=== PATIENT | male | born 1980 | race Caucasian/White ===

== ENCOUNTER 2021-12-06 13:47 | Emergency (ER) | payer MEDICAID, SELFPAY ==
[2021-12-06 14:13] VITALS: BP 123/77; PULSE 63; RESP 20; TEMP 37.3; O2SAT 97; BMI 27.3
--- NOTE | 2021-12-06 14:33 | CRLHL7_ITS ---
For Patients: As a result of the Century Cures Act, medical imaging exams and procedure reports are released immediately into your electronic medical record. You may view this report before your referring provider. If you have questions, please contact your health care provider. INDICATION: covid, cough, short of breath TECHNIQUE: Chest 1 view. COMPARISON: None. FINDINGS: Cardiovascular and mediastinum: Heart size and vasculature are normal in caliber and appearance. Mediastinum is within normal limits. Lungs and pleural space: Lungs are clear. No sign of infiltrate or mass. No sign of pleural effusion. No pneumothorax. Bones and soft tissues: No significant findings. IMPRESSION: Unremarkable chest. Dictated by: Johan Mariscal MD @ 12/06/2021 15:18:27 (Electronically Signed)
--- NOTE | 2021-12-06 14:34 | ED.GENADULT ---
HPI - General Adult General Chief complaint: Weakness Stated complaint: Covid+, short of breath Time Seen by Provider: 12/06/21 14:25 History of Present Illness HPI narrative: This 41-year-old male comes in reporting generalized weakness, cough, and some shortness of breath. These symptoms have been present for about a week. Five days ago he tested at home positive for COVID. He arrives with normal vital signs and oximetry 97% on room air. He is not using any accessory muscles for breathing. Related Data Allergies Allergy/AdvReac Type Severity Reaction Status Date / Time seasonal Allergy Mild Uncoded 12/06/21 14:12 Review of Systems Status of ROS: Reports: 10 or more systems reviewed and unremarkable except as noted in History and below Narrative: Constitutional: No fevers, no weight gain or loss. Generalized weakness and fatigue. Eyes: No discharge. No vision changes. HENT: No congestion, no sore throat, no ear pain. Cardiovascular: No chest pain, no palpitations. Respiratory: Occasional cough with some shortness of breath. Gastrointestinal: No abdominal pain, no vomiting, no diarrhea. Genitourinary: No dysuria, no hematuria. Musculoskeletal: Normal range of motion. Skin: No rashes, no pruritis. Neurological: No dizziness, sensory change, speech change. Endo/Heme/Allergies: No bruising or bleeding. No polydipsia. Pysch: no suicidality, no anxiety, no insomnia. All other systems reviewed and are negative. [facility] Social History Smoking Status: Never smoker Do you use any of these nicotine containing products: None Second hand tobacco smoke exposure: No How often do you have a drink containing alcohol: 4 or more times a week How many standard drinks containing alcohol do you have on a typical day: 1 or 2 How often do you have six or more drinks on one occasion: Never AUDIT-C Alcohol total score: 4 Non-prescribed substance use: denies use service: No Exam Narrative: Exam Narrative: Constitutional: Well-developed, well-nourished, no acute distress. HEENT: Normocephalic, atraumatic. Neck: Normal range of motion. Nontender. Supple. Heart: Regular. No murmurs. Normal rate. Intact distal pulses. Lungs: Clear to auscultation. No chest discomfort. No wheezes, rhonchi, or rales. Abdomen: Normal bowel sounds. Nontender. No rebound tenderness. Genitalia: Deferred. Back: No midline tenderness. Normal range of motion. Extremities: Normal range of motion. No injury. Skin: Intact. No rash. Warm. No erythema or pallor. Neurologic: No altered sensation. No weakness. Alert and oriented. Psychiatric: No suicidality. No anxiety or depression. No insomnia. Nursing notes and vitals signs are reviewed. Const: Vital Signs, click to edit/add: Vital Signs - 24 hr 12/06/21 14:13 Temperature 99.2 F Pulse Rate [Pulse Oximeter] 63 Respiratory Rate 20 Blood Pressure [Le ft Upper Arm] 123/77 Pulse Oximetry 97 Oxygen Delivery Me thod Room Air Course Vital Signs Vital signs: Initial Vital Signs Temperature 99.2 F 12/06/21 14:13 Temperature Source Temporal Artery Scan 12/06/21 14:13 Pulse Rate 63 12/06/21 14:13 Pulse Rhythm 12/06/21 14:13 Respiratory Rate 20 12/06/21 14:13 Blood Pressure 123/77 12/06/21 14:13 Blood Pressure Mean 92 12/06/21 14:13 Blood Pressure Position Supine 12/06/21 14:13 Pulse Oximetry 97 12/06/21 14:13 Oxygen Delivery Method 12/06/21 14:13 Vital Signs Temperature 99.2 F 12/06/21 14:13 Pulse Rate 63 12/06/21 14:13 Respiratory Rate 20 12/06/21 14:13 Blood Pressure 123/77 12/06/21 14:13 Pulse Oximetry 97 12/06/21 14:13 Oxygen Delivery Method 12/06/21 14:13 Temperature 99.2 F 12/06/21 14:13 Pulse Rate 63 12/06/21 14:13 Respiratory Rate 20 12/06/21 14:13 Blood Pressure 123/77 12/06/21 14:13 Pulse Oximetry 97 12/06/21 14:13 Oxygen Delivery Method 12/06/21 14:13 Medical Decision Making MDM Narrative Medical decision making narrative: This patient comes in because of symptoms related to a positive COVID test. His vital signs are in normal range with oximetry at 97%. He is not showing any sign of difficulty with breathing. Additionally his lungs are clear bilaterally. He did have an x-ray which also shows no remarkable findings. The patient received an oral dose of dexamethasone 10 mg. He is okay to be discharged home. He will use [id number] medicines as needed and directed. Imaging Data Chest x-ray: Radiologist's impression: Unremarkable chest. Discharge Plan Discharge Clinical Impression: COVID-19 Patient Disposition: Home, Self-Care Condition: Stable Instructions: COVID-19 (Coronavirus Disease 2019) (ED) Additional Instructions: Use [id number] medicines as needed and directed. Follow up with MD or return if worsening symptoms occur. Follow Up/Referrals: Kavin Clark MD [Staff Physician] - Stand Alone Forms: 36Kr Info Instructions
[2021-12-06] MEDS: dexAMETHasone 10 MG/ML inj PO (14:43)
--- OUTSIDE RECORDS SUMMARY | 2021-12-06 15:35 | XMS_ITS | Encounter Summary ---
:1980 Author Organization [email or web address] Address [address] [place] [address] Care Team Providers Name Role Phone Yeison Kim MD Primary Care Provider Reason for Visit Reason Comments Eye Exam Encounter Details Date Type Department Care Team Description 07/01/2020 Office Visit [facility] [address], ANNA Examination of eyes and vision (Primary Dx); Ophthalmology [address] Regular astigmatism, bilater al; [address] Hyperopia [place] [address] [id number] [phone] Social History Tobacco Use Types Packs/Day Years Used Date Smoking Tobacco: Never Sex Assigned at Date Recorded Not on file documented as of this encounter Patient Instructions Patient InstructionsCurt Rueda, OD - 07/01/2020 2:00 PM CDT - Recommend a new glasses prescription for improved vision in the distance. - Schedule a contact lens exam / fitting at your earliest convenience. - Return to clinic in 1-2 years for a complete eye exam. Return sooner should you notice any decrease in vision or comfort. documented in this encounter Progress Notes Curt Rueda, ANNA - 07/01/2020 2:00 PM CDT General Medical Observation: Basically healthy. Feels well. Diagnosis and Associated Orders ICD-10-CM 1. Examination of eyes and vision Z01.00 Refractive State, Determination Of - Bilateral 2. Regular astigmatism, bilateral H52.223 3. 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 Plan: Discussed findings with the patient. Schedule another contact lens evaluation at your earliest convenience. The instructions (as seen below) were given to the patient. Patient Instructions - Recommend a new glasses prescription for improved vision in the distance. - Schedule a contact lens exam / fitting at your earliest convenience. - Return to clinic in 1-2 years for a complete eye exam. Return sooner should you notice any decrease in vision or comfort. documented in this encounter Plan of Treatment Not on filedocumented as of this encounter Visit Diagnoses Diagnosis Examination of eyes and vision - Primary Regular astigmatism, bilateral Hyperopia of right eye documented in this encounter Care Teams Guideman Relationship Specialty Start Date End Date Yeison Kim MD PCP - General 06/18/10 [address] [place] [address] documented as of this encounter
--- OUTSIDE RECORDS SUMMARY | 2021-12-06 15:35 | XMS_ITS | Clinical Summary ---
:1980 Author Organization [facility] Address [address] [address] Care Team Providers Name Role Phone Yeison Kim MD Primary Care Provider Source Comments You are receiving this document as you are listed as the primary care provider,follow-up provider, or the patient has been referred to you for consultation.This is in compliance with the Medicare and Medicaid EHR Incentive Program,which states Providers who transition their patient to another setting of careor provider of care or refers their patient to another provider of care shouldprovide summarycare record for each transition of care or referral. [place] Allergies Active Allergy Reactions Severity Noted Date Comments Gluten Meal Other, see comments 01/21/2016 Celiac d z Medications Medication Sig Dispensed Refills Start Date End Date Status cetirizine (AKA Take 1 tablet by 90 3 08/12/2009 Active ZYRTEC) 10 MG tablet mouth daily (every 24 hours). LW Addl Instr:Indicated for: Allergies Multiple Vitamin 0 Act alan (MULTIVITAMINS OR) Multiple 0 Active Vitamins-Minerals (ZINC OR) Active Problems Problem Noted Date Major depressive disorder, single episode 03/14/2007 Overview: Depression Major NOS Allergic rhinitis 08/24/2002 Overview: Rhinitis Allergic NOS Immunizations Name Administration Dates Next Due DTP 11/06/1986, 09/14/1983, 05/26/1982, 03/09/1982, 1980 HepB Adult (Engerix-B, 20+ yrs, 3 04/26/1995, 10/05/1994, dose series) Hib (ActHIB) 01/03/1986 Influenza, Unspecified Formulation 01/07/1999, 01/24/1998, 1 MMR 09/02/1994, 02/16/1983 MPSV4 (Menomune) 10/25/2000 Moderna (Spikevax) COVID-19, 12+ Yrs 06/27/2020 OPV, Trivalent (Orimune or tOPV) 11/06/1986, 09/14/1983, , 1980 TDAP (ADACEL) 08/12/2009 Td 06/20/1997 Family History Medical History Relation Name Comments Diabetes Maternal Grandfather Diabetes Paternal Grandmother Cataract Negative Family History Glaucoma Negative Family History Macular Degeneration Negative Family History Relation Name Status Comments Maternal Grandfather Paternal Grandmother Social History Tobacco Use Types Packs/Day Years Used Date Smoking Tobacco: Never Sex Assigned at Date Recorded Not on file Last Filed Vital Signs Vital Sign Reading Time Taken Comments Blood Pressure 111/65 04/24/2017 1:38 PM [employer]ERHANGER PIPE Pulse 61 04/24/2017 1:38 PM [employer] Temperature 36.8 ??C (98.2 ??F) 04/24/2017 1:38 PM [employer]HANG[employer]IPE Respiratory Rate 16 04/24/2017 1:38 PM [employer]HANG[employer]IPE Oxygen Saturation 96% 04/24/2017 1:38 PM [employer]IPE Inhaled Oxygen Concentration - - Weight 78.6 kg (173 lb 3.1 oz) 01/27/2010 1:04 PM C: 78 .6kg [employer] Height 179.7 cm (5' 10.75) 01/25/2010 9:30 AM C: 179.7 cm [employer] Body Mass Index 24.33 01/25/2010 9:30 AM [employer]ERHANG[employer]IPE Plan of Treatment Health Maintenance Due Date Last Done Comments Hep C Screening (Preventive 1980 Services) Adult Preventive Visit 11/02/1999 Cholesterol 2016 11/16/1998, 10/17/1998, 09/19/1998, Additional history exists COVID-19 Vaccine (2 - 07/25/2020 06/27/2020 Moderna series) Influenza (#1) 2021 01/28/2020, 01/07/1999, 01/07/1999, Additional history exists DTaP/Tdap/Td (8 - Tdap) 06/03/2030 06/03/2020, 08/12/2009, 06/20/1997, Additional history exists Zoster/Shingles (1 of 2) 11/02/2031 Hib Completed 01/03/1986 IPV (Polio) Completed 11/06/1986, 09/14/1983, 03/09/1982, Additional history exists HepB Completed 04/26/1995, 10/05/1994, 09/02/1994 MCV4 Aged Out 10/25/2000 No longer eligib le based on patient 's age to complete this topic HIV Screening (Preventive Completed 01/25/2010 Services) HPV Vaccine Aged Out No longer eligib le based on patient 's age to complete this topic HepA Aged Out No longer eligib le based on patient 's age to complete this topic Pneumococcal Aged Out No longer eligib le based on patient 's age to complete this topic Care Teams Syrup Mixer Assistant Relationship Specialty Start Date End Date Yeison Kim MD PCP - General 06/18/10 [facility] [place] [address]
--- OUTSIDE RECORDS SUMMARY | 2021-12-06 15:35 | XMS_ITS | Encounter Summary ---
:1980 Author Organization [facility] Address [address] [address] Care Team Providers Name Role Phone Yeison Kim MD Primary Care Provider Reason for Visit Reason Comments Follow-up Encounter Details Date Type Department Care Team Description 08/11/2020 Office Visit [facility] [address] Hyper opia of both eyes Contact Lens L with astigmatism [address] (Primary Dx) [address] [place], [place] [address] Social History Tobacco Use Types Packs/Day Years Used Date Smoking Tobacco: Never Sex Assigned at Date Recorded Not on file documented as of this encounter Plan of Treatment Not on filedocumented as of this encounter Visit Diagnoses Diagnosis Hyperopia of both eyes with astigmatism - Primary documented in this encounter Care Teams Skiver Heel Tap Relationship Specialty Start Date End Date Yeison Kim MD PCP - General 06/18/[address] [place] [address] [id number] documented as of this encounter
--- OUTSIDE RECORDS SUMMARY | 2021-12-06 15:35 | XMS_ITS | Encounter Summary ---
:1980 Author Organization [facility] Address [address], [place] [address] Care Team Providers Name Role Phone Yeison Kim MD Primary Care Provider Reason for Visit Reason Comments Annual Exam Encounter Details Date Type Department Care Team Description 08/16/2018 Office Visit [facility] [address] Hyperopia with Contact Lens [address] [place] astigmatism, [address] bilateral ([address] [place], [place] Dx) [place] [address] [id number] Social History Tobacco Use Types Packs/Day Years Used Date Smoking Tobacco: Never Sex Assigned at Date Recorded Not on file documented as of this encounter Plan of Treatment Not on filedocumented as of this encounter Visit Diagnoses Diagnosis Hyperopia with astigmatism, bilateral - Primary documented in this encounter Care Teams Braille Duplicating Machine Operator Relationship Specialty Start Date End Date Yeison Kim MD PCP - General 06/18/[address] [place], [place] [address] documented as of this encounter
--- OUTSIDE RECORDS SUMMARY | 2021-12-06 15:35 | XMS_ITS | Encounter Summary ---
:1980 Author Organization [facility] Address [address] [address] Care Team Providers Name Role Phone Yeison Kim MD Primary Care Provider Reason for Visit Reason Comments Annual Exam Encounter Details Date Type Department Care Team Description 07/14/[address] [facility] [address] Hyper opia of both eyes Contact Lens L with astigmatism [address] (Primary Dx) [address] [place], [place] [address] Social History Tobacco Use Types Packs/Day Years Used Date Smoking Tobacco: Never Sex Assigned at Date Recorded Not on file documented as of this encounter Plan of Treatment Not on filedocumented as of this encounter Visit Diagnoses Diagnosis Hyperopia of both eyes with astigmatism - Primary documented in this encounter Care Teams Biofuels Product Manager Relationship Specialty Start Date End Date Yeison Kim MD PCP - General 06/18/[address] [place] [address] [id number] documented as of this encounter
--- OUTSIDE RECORDS SUMMARY | 2021-12-06 15:35 | XMS_ITS | Encounter Summary ---
:1980 Author Organization [facility] Address [address] [place] [address] Care Team Providers Name Role Phone Yeison Kim MD Primary Care Provider Reason for Visit Reason Comments Ear Pain Encounter Details Date Type Department Care Team Description 01/21/2016 Hospital Encounter [facility] Dalia Cruz L eft non-suppurative Care otitis media [address] [address] [phone] Social History Tobacco Use Types Packs/Day Years Used Date Smoking Tobacco: Never Sex Assigned at Date Recorded Not on file documented as of this encounter Last Filed Vital Signs Vital Sign Reading Time Taken Comments Blood Pressure 120/70 01/21/2016 1:49 PM CDT Pulse 70 01/21/2016 1:49 PM CDT Temperature 36.6 ??C (97.9 ??F) 01/21/2016 1:49 PM CDT Respiratory Rate 16 01/21/2016 1:49 PM CDT Oxygen Saturation - - Inhaled Oxygen Concentration - - Weight - - Height - - Body Mass Index - - documented in this encounter Medications at Time of Discharge Medication Sig Dispensed Refills Start Date End Date cetirizine (AKA ZYRTEC) Take 1 tablet by mouth 90 3 08/12/2009 10 MG tablet daily (every 24 hours). LW Addl Instr:Indicated for: Allergies Multiple Vitamin 0 (MULTIVITAMINS OR) Multiple 0 Vitamins-Minerals (ZINC OR) amoxicillin-clavulanate Take 1 Tab by mouth 14 Tab 0 05/201501/31/2016 (AUGMENTIN) 875-125 mg two times a day for 10 per tablet days. drug not in computer 0 06/18 Probiotic Product 0 021 (SUPER PROBIOTIC OR) documented as of this encounter ED Notes Dalia Cruz MD - 01/21/2016 8:31 PM CDT NAME: BENJAMIN SMITH MR#: [id number] CSN: [id number] AUTHENTICATING CLINICIAN: Dalia Cruz MD CONFIRM #: [id number] LOC: 520 URGENT CARE PROGRESS NOTE DATE OF VISIT: 01/21/2016 : 1980 CHIEF COMPLAINT: Ear pain. HPI: This pleasant 35-year-old comes in today complaining of ear pain. It has been going on for the past 2-3 days. It is his left ear. No recent cough or cold symptoms. The patient says he was wondering if maybe he has some wax in his ear. He does not have any hearing loss. His hearing is intact. He does not have any ringing in his ears. PAST MEDICAL HISTORY: Reviewed through [facility]. PAST SURGICAL HISTORY: Reviewed through [employer]. MEDICATIONS: Epic. ALLERGIES: Gluten. OBJECTIVE: VITAL SIGNS: Temperature 97.9, pulse 70, respirations 16, blood pressure 120/70. GENERAL: Alert and oriented, no apparent distress. HEENT: Right tympanic membrane is within normal limits. Left tympanic membrane reveals otitis media.It is erythematous with fluid. Sinuses are nontender. Oropharynx is clear with no tonsillar enlargement. LUNGS: Clear. HEART: Regular. ABDOMEN: Soft and nontender. ASSESSMENT: Left otitis media. PLAN: Will treat with Augmentin 875 one p.o. b.i.d. x10 days. Rest, fluids, ibuprofen and Tylenol. The patient is in agreement with the plan. He will follow up if symptoms are not significantly improving. LIVIAM:ABBY C: CONFIRM #: [id number] documented in this encounter Plan of Treatment Not on filedocumented as of this encounter Visit Diagnoses Diagnosis Left non-suppurative otitis media Nonsuppurative otitis media, not specifi ed as acute or chronic Triage Assessment Note - Scottie Villa RN - 01/21/2016 1:46 PM CDT C/o left ear pain onset a few days ago. Denies cold symptoms now, but did have a cold a couple weeksago. documented in this encounter Care Teams Marine Services Technician Relationship Specialty Start Date End Date Yeison Kim MD PCP - General 06/18/[address] [place] [id number] documented as of this encounter
--- OUTSIDE RECORDS SUMMARY | 2021-12-06 15:35 | XMS_ITS | Encounter Summary ---
:1980 Author Organization [facility] Address [address] [address] Care Team Providers Name Role Phone Yeison Kim MD Primary Care Provider Reason for Visit Procedure/Equipment (Routine) - Incomplete Specialty Diagnoses / Procedures Referred By Contact Refer red To Contact Diagnoses Pain of toe of right foot Al Ovalle MD Procedures XR Toe Rt 1st Great 3 Views [address] [place] [address] Referral ID Status Reason Start Date Expiration Date Visits V isits Requested Authorized [id number] Incomplete 04/24/2017 07/24/2018 1 1 Encounter Details Date Type Department Care Team Description 04/24/2017 Imaging [facility] [address] [place] [address] Social History Tobacco Use Types Packs/Day Years Used Date Smoking Tobacco: Never Sex Assigned at Date Recorded Not on file documented as of this encounter Plan of Treatment Not on filedocumented as of this encounter Procedures Procedure Name Priority Date/Time Associated Diagnosis Comme nts XR TOE RT 1ST GREAT Routine 04/24/2017 2:29 PM Pain of toe of right Results for this 3 VIEWS KILN BURNER HELPER foot procedure are i n the results section. documented in this encounter Results XR Toe Rt 1st Great 3 Views (04/24/2017 2:29 PM KILN BURNER HELPER) Anatomical Region Laterality Modality Lower Extremity, Foot, Foot & Ankle Comp uted Radiography Specimen (Source) Anatomical Collection Method Collection Time Re ceived Time Location / / Volume Laterality 04/24/2017 2:24 PM KILN BURNER HELPER Narrative 04/24/2017 2:41 PM KILN BURNER HELPER COMPARISON: ??None. FINDINGS: ??No definite fracture, disloc ation, joint abnormality or radiopaque foreign body is identified. Procedure Note Maryann Snell MD - 04/24/2017Formattin g of this note might be different from the original. COMPARISON: None. FINDINGS: No definite fracture, dislocat ion, joint abnormality or radiopaque foreign body is identified. Al Ovalle MD RAD GD documented in this encounter Visit Diagnoses Not on filedocumented in this encounter Care Teams Truck Jumper Relationship Specialty Start Date End Date Yeison Kim MD PCP - General 06/18/[address] [place] [phone] documented as of this encounter
--- OUTSIDE RECORDS SUMMARY | 2021-12-06 15:35 | XMS_ITS | Encounter Summary ---
:1980 Author Organization [facility] Address [address] [address] Care Team Providers Name Role Phone Yeison Kim MD Primary Care Provider Reason for Visit Reason Comments Follow-up Encounter Details Date Type Department Care Team Description 05/11/2015 Office Visit [facility] [address] Hyper opia of right eye with astigmatism (Primary Dx); Contact Lens L Astigmatism of eye, bilatera l [address] [facility] [place], [place] [id number] Social History Tobacco Use Types Packs/Day Years Used Date Smoking Tobacco: Never Assessed Sex Assigned at Date Recorded Not on file documented as of this encounter Progress Notes Jean CarlosAlekjeremy L - 05/11/2015 9:21 AM CST Contact Lens Exam Current Contact Lens Rx (Trial Lens, Ordered) Brand Base Curve Diameter Sphere Cylinder [place] Dist VA Centration Movement Right Avaira toric 8.50 14.5 +2.00 -1.75 010 20/30-1 Well-centered Adequate Left Avaira toric 8.50 14.5 [place] -0.75 140 20/30-1 Well-centered Adequate Rotation Over-Sphere Over-VA Right Centers [place] NI Left Centers [place] NI Contact History WTT: 1 Solutions Used: ClearCare Final Contact Lens Rx Brand Base Curve Diameter Sphere Cylinder [place] Right Avaira toric 8.50 14.5 +2.00 -1.75 010 Left Avaira toric 8.50 14.5 [place] -0.75 140 Expiration Date: 03-26-2017 Additional Notes Cl rx to pt. OL AGENT documented in this encounter Plan of Treatment Not on filedocumented as of this encounter Visit Diagnoses Diagnosis Hyperopia of right eye with astigmatism - Primary Astigmatism of eye, bilateral documented in this encounter Care Teams Optical Instrument Repairer Relationship Specialty Start Date End Date Yeison Kim MD PCP - General 06/18/[address] [place] [id number] documented as of this encounter
--- OUTSIDE RECORDS SUMMARY | 2021-12-06 15:35 | XMS_ITS | Encounter Summary ---
:1980 Author Organization [facility] Address [address], [place] [address] Care Team Providers Name Role Phone Yeison Kim MD Primary Care Provider Reason for Visit Reason Comments Eye Exam Encounter Details Date Type Department Care Team Description 08/16/2018 Office Visit [facility] [address], Exam ination of eyes and vision (Primary Dx); Ophthalmology OD Regular astigmatism, bilateral [address] [place] [address] [phone] (Wo rk) Social History Tobacco Use Types Packs/Day Years Used Date Smoking Tobacco: Never Sex Assigned at Date Recorded Not on file documented as of this encounter Progress Notes Familia Peña, ANNA - 08/16/2018 2:00 PM CDT General medical assessment: Patient is alert. Basically healthy. Assessment: ICD-10-CM 1. Examination of eyes and vision Z01.00 2. Regular astigmatism, bilateral H52.223 Patient has never been correctable to 20/20. Plan: 1. Discussed findings with patient. 2. Glasses Rx given. 3. Return to clinic in 2 years or as needed. documented in this encounter Plan of Treatment Not on filedocumented as of this encounter Visit Diagnoses Diagnosis Examination of eyes and vision - Primary Regular astigmatism, bilateral documented in this encounter Care Teams Ems Instructor Relationship Specialty Start Date End Date Yeison Kim MD PCP - General 06/18/10 [facility] [place] [address] documented as of this encounter
--- OUTSIDE RECORDS SUMMARY | 2021-12-06 15:35 | XMS_ITS | Encounter Summary ---
:1980 Author Organization [facility] Address [address], [place] [address] Care Team Providers Name Role Phone Yeison Kim MD Primary Care Provider Reason for Visit Reason Comments Follow-up Encounter Details Date Type Department Care Team Description 12/08/2020 Office Visit [facility] [address] Hyper opia of both eyes Contact Lens L with astigmatism [address] (Primary Dx) [address] [place], [place] [id number] Social History Tobacco Use Types Packs/Day Years Used Date Smoking Tobacco: Never Sex Assigned at Date Recorded Not on file documented as of this encounter Plan of Treatment Not on filedocumented as of this encounter Visit Diagnoses Diagnosis Hyperopia of both eyes with astigmatism - Primary documented in this encounter Care Teams Corporate Director Talent Assessment Relationship Specialty Start Date End Date Yesion Kim MD PCP - General 06/18/[address] [place] [id number] documented as of this encounter
--- OUTSIDE RECORDS SUMMARY | 2021-12-06 15:35 | XMS_ITS | Encounter Summary ---
:1980 Author Organization [facility] Address [address] [place] [address] Care Team Providers Name Role Phone Yeison Kim MD Primary Care Provider Reason for Referral Procedure/Equipment (Routine) - Incomplete Specialty Diagnoses / Procedures Referred By Contact Refer red To Contact Diagnoses Pain of toe of right foot Al Ovalle MD Procedures XR Toe Rt 1st Great 3 Views [address] [place] [address] Referral ID Status Reason Start Date Expiration Date Visits V isits Requested Authorized [id number] Incomplete 04/24/2017 07/24/2018 1 1 FURNACE CHARGER Reason for Visit Reason Comments Toe Pain Encounter Details Date Type Department Care Team Description 04/24/2017 Hospital Encounter Al Banda Pain of toe of right Care MD [place] [address] [place] [address] [phone] Social History Tobacco Use Types Packs/Day Years Used Date Smoking Tobacco: Never Sex Assigned at Date Recorded Not on file documented as of this encounter Last Filed Vital Signs Vital Sign Reading Time Taken Comments Blood Pressure 111/65 04/24/2017 1:38 PM ZINC FURNACE CHARGER Pulse 61 04/24/2017 1:38 PM ZINC FURNACE CHARGER Temperature 36.8 ??C (98.2 ??F) 04/24/2017 1:38 PM ZINC FURNACE CHARGER Respiratory Rate 16 04/24/2017 1:38 PM ZINC FURNACE CHARGER Oxygen Saturation 96% 04/24/2017 1:38 PM ZINC FURNACE CHARGER Inhaled Oxygen Concentration - - Weight - [...] (MULTIVITAMINS OR) Multiple 0 Vitamins-Minerals (ZINC OR) drug not in computer 0 06/18 Probiotic Product 0 021 (SUPER PROBIOTIC OR) documented as of this encounter ED Notes Al Ovalle MD - 04/24/2017 2:49 PM CST Patient ID: Benjamin Smith Date of : 1980 SUBJECTIVE: 36 y.o. male presents with tenderness to his right toe that has been going on for about a week. 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 No other injuries no other complaints. Medications: Multiple Vitamin, Multiple Vitamins-Minerals, Probiotic Product, cetirizine, and drug not in computer Allergies: Allergies Allergen Reactions ??? Gluten Meal Other, see comments Celiac dz OBJECTIVE: General: Appears well in no distress. Vitals: Blood pressure 111/65, pulse 61, temperature 36.8 ??C (98.2 ??F), temperature source Oral, resp. rate 16, SpO2 96 %. MUSCULOSKELETAL: Exam is limited the right foot. He has some tenderness at the MTP joint of the great toe. I cannot appreciate a lot of swelling. There is no redness. UC Course: Xr Toe Rt 1st Great 3 Views - I could not appreciate any acute fractures present. I personally reviewed and interpreted the patient's x-ray. The radiologist will be reading the x-ray at a later time. If there are any discrepancies we will call you. Result Date: 04/24/2017 COMPARISON: None. FINDINGS: No definite fracture, dislocation, joint abnormality or radiopaque foreign body is identified. ASSESSMENT: The encounter diagnosis was Pain of toe of right foot. PLAN: He can use ibuprofen for pain. I told to wear shoes with a good support in sole. Follow up with primary care physician in 3 - 5 days or sooner if symptoms worsen. May return here orgo to the ER if worsening or concerns. Call here if any concerns whatsoever. FURNACE CHARGER documented in this encounter Plan of Treatment Not on filedocumented as of this encounter Procedures Procedure Name Priority Date/Time Associated Diagnosis Comme nts XR TOE RT 1ST GREAT Routine 04/24/2017 2:29 PM Pain of toe of right Results for this 3 VIEWS ZINC FURNACE CHARGER foot procedure are i n the results section. documented in this encounter Results XR Toe Rt 1st Great 3 Views (04/24/2017 2:29 PM ZINC FURNACE CHARGER) Anatomical Region Laterality Modality Lower Extremity, Foot, Foot & Ankle Comp uted Radiography Specimen (Source) Anatomical Collection Method Collection Time Re ceived Time Location / / Volume Laterality 04/24/2017 2:24 PM ZINC FURNACE CHARGER Narrative 04/24/2017 2:41 PM ZINC FURNACE CHARGER COMPARISON: ??None. FINDINGS: ??No definite fracture, disloc ation, joint abnormality or radiopaque foreign body is identified. Procedure Note Maryann Snell MD - 04/24/2017Formattin g of this note might be different from the original. COMPARISON: None. FINDINGS: No definite fracture, dislocat ion, joint abnormality or radiopaque foreign body is identified. Al Ovalle MD RAD GD documented in this encounter Visit Diagnoses Diagnosis Pain of toe of right foot Pain in limb Triage Assessment Note - Tia Lofton RN - 04/24/2017 1:37 PM CST C/o right great toe injury one week ago. FURNACE CHARGER documented in this encounter Care Teams Dado Operator Relationship Specialty Start Date End Date eYison Kim MD PCP - General 06/18/[address] [place] [address] [place] [address] documented as of this encounter
--- OUTSIDE RECORDS SUMMARY | 2021-12-06 15:36 | XMS_ITS | Encounter Summary ---
:1980 Author Organization [facility] Address [address], [place] [address] Care Team Providers Name Role Phone Yeison Kim MD Primary Care Provider Encounter Details Date Type Department Care Team Description 09/23/1998 [facility] [address] [place] [address] Social History Tobacco Use Types Packs/Day Years Used Date Smoking Tobacco: Never Assessed Sex Assigned at Date Recorded Not on file documented as of this encounter Plan of Treatment Not on filedocumented as of this encounter Visit Diagnoses Not on filedocumented in this encounter Care Teams Owner Professional Engineer Relationship Specialty Start Date End Date Yeison Kim MD PCP - General 06/18/10 [address] [facility] [place], [place] [address] documented as of this encounter
--- OUTSIDE RECORDS SUMMARY | 2021-12-06 15:36 | XMS_ITS | Encounter Summary ---
:1980 Author Organization [facility] Address [address] [place] [address] Care Team Providers Name Role Phone Yeison Kim MD Primary Care Provider Encounter Details Date Type Department Care Team Description 01/27/2010 Office Visit [facility] Kyle Morocho, [address] [place], [place] [address] [phone] [place] [address] (Wo rk) Social History Tobacco Use Types Packs/Day Years Used Date Smoking Tobacco: Never Assessed Sex Assigned at Date Recorded Not on file documented as of this encounter Last Filed Vital Signs Vital Sign Reading Time Taken Comments Blood Pressure 147/77 01/27/2010 1:04 PM DIGITAL CARTOGRAPHER Pulse 81 01/27/2010 1:04 PM DIGITAL CARTOGRAPHER Temperature - - Respiratory Rate - - Oxygen Saturation - - Inhaled Oxygen Concentration - - Weight 78.6 kg (173 lb 3.1 oz) 01/27/2010 1:04 PM DIGITAL CARTOGRAPHER C : 78.6kg Height - - Body Mass Index 24.33 01/25/2010 9:30 AM DIGITAL CARTOGRAPHER documented in this encounter Progress Notes Kyle Morocho MD - 01/27/2010 12:01 AM CST NAME: BENJAMIN SMITH MR#: [id number] ACCT: [id number] VISIT: [id number] DICTATING CLINICIAN: Kyle Morocho MD CONFIRM #: [id number] LOC: 1002 CLINIC PROGRESS NOTE DATE OF VISIT: 01/27/2010 : 1980 SUBJECTIVE: Mr. Smith is a 29-year-old gentleman who presents to clinic for treatment of genital warts. He had come in to be tested for sexually transmitted diseases the other day and during his exam was noted to have numerous genital warts on his foreskin. He comes in today for further discussion of treatment, and he had expressed an interest in cryotherapy to take care of these. They have not changed since the last time I saw him. SOCIAL HISTORY: The patient is a nonsmoker. PAST MEDICAL HISTORY: Significant for major depressive disorder, severe, requiring ECT treatment. MEDICATIONS: Reviewed and updated in LastWord. PREVIOUS TREATMENTS: The patient has previously used Podofilox for his genital warts and this does not seem to have any particular affect. He has not tried Imiquimod. OBJECTIVE: VITALS: Blood pressure: 147/77. Pulse: 81, regular. Weight: 173.2. GENERAL: A well-groomed, well-appearing young man in no acute distress. PSYCH: Mood and affect are congruent, judgment and insight are intact, thought content and processes are within normal limits. 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 ASSESSMENT AND PLAN: Genital condyloma. Discussed risks and benefits of cryotherapy. Risks to include scarring and blistering. The patient verbalizes understanding and consents to treatment. A series of freeze/thaw cycles were performed on the patient's condyloma. No immediate blistering was apparent, but there was marked erythema of the skin following treatment. The patient did tolerated the procedure well. Discussed appropriate aftercare with the patient, and he will return if there are any significant issues. We did discuss the possibility of recurrence of his warts, and that this was given a likely situation. Did discuss in the future more cryotherapy could be performed or we could try some Imiquimod if he has good insurance coverage for it. RFM:ABBY C: CONFIRM #: [id number] TAL CARTOGRAPHER documented in this encounter Plan of Treatment Not on filedocumented as of this encounter Visit Diagnoses Not on filedocumented in this encounter Care Teams District Sales Manager Relationship Specialty Start Date End Date Yeison Kim MD PCP - General 06/18/10 [address] [place] [address] documented as of this encounter
--- OUTSIDE RECORDS SUMMARY | 2021-12-06 15:36 | XMS_ITS | Encounter Summary ---
:1980 Author Organization [facility] Address [address] [place] [address] Care Team Providers Name Role Phone Yeison Kim MD Primary Care Provider Encounter Details Date Type Department Care Team Description 01/25/2010 Office Visit [facility] edicine Kyle Morocho, [address] [place], [place] [address] [phone] [place] [address] (Wo rk) Social History Tobacco Use Types Packs/Day Years Used Date Smoking Tobacco: Never Assessed Sex Assigned at Date Recorded Not on file documented as of this encounter Last Filed Vital Signs Vital Sign Reading Time Taken Comments Blood Pressure 146/86 01/25/2010 9:30 AM FORMWORK CARPENTER Pulse 68 01/25/2010 9:30 AM FORMWORK CARPENTER Temperature - - Respiratory Rate - - Oxygen Saturation - - Inhaled Oxygen Concentration - - Weight 78 kg (171 lb 15.7 oz) 01/25/2010 9:30 AM FORMWORK CARPENTER C: 78.0kg Height 179.7 cm (5' 10.75) 01/25/2010 9:30 AM FORMWORK CARPENTER C: 1 79.7cm Body Mass Index 24.16 01/25/2010 9:30 AM FORMWORK CARPENTER documented in this encounter Progress Notes Kyle Morocho MD - 01/25/2010 12:01 AM CST NAME: BENJAMIN SMITH MR#: [id number] ACCT: [id number] VISIT: [id number] DICTATING CLINICIAN: Kyle Morocho MD CONFIRM #: [id number] LOC: 1002 CLINIC PROGRESS NOTE DATE OF VISIT: 01/25/2010 : 1980 SUBJECTIVE: Mr. Smith is a 29-year-old who presents to clinic with concerns about STDs. His current sexual partner informed him that she has been diagnosed with Chlamydia. He states that they have always been using protection when they have been having sex, but he is wondering about the possibility of him having disease as well. He denies any testicular pain, denies any penile discharge. Overall he feels his usual state of health. When I last saw him it was for a preoperative evaluation prior to some electroconvulsive therapy and the patient does note that he feels somewhat better after that but he describes a sensation as being unique. He has a hard time describing in its entirety how he feels. SOCIAL HISTORY: Nonsmoker. MEDICATIONS: Reviewed and updated in LastWord. OBJECTIVE: VITALS: Height 70.25, weight 172. Blood pressure 146/86, pulse 68 and regular. GENERAL: Well-groomed, well-appearing young man in no acute distress. PSYCH: Mood and affect are congruent, judgment and insight intact, thought content and processes within normal limits. GENITOURINARY: There is no testicular pain. No epididymal tenderness. There is no discharge from the tip of the penis. The patient is uncircumcised. There are numerous genital warts near the tip of his penis on his foreskin. ASSESSMENT AND PLAN: A 29-year-old with genital warts, desire for sexually transmitted disease screening. Will screen him for Chlamydia, gonorrhea, syphilis, HIV. Discussed the fact that we are mandated to report it to the Department of Public Health and that he might be contacted concerning these results in the future. I did not give him a prescription for azithromycin or doxycycline for Chlamydia at this point since he has been having protected intercourse only. If there are any abnormal results I would tell him these as soon as I was made aware of them, otherwise the patient will be mailed his results. We also did briefly discuss treatment options for genital condyloma and the patient will follow up with me in clinic as it sounds as if he is interested in having these frozen. RFM:ABBY C: CONFIRM #: [id number] WORK CARPENTER documented in this encounter Plan of Treatment Not on filedocumented as of this encounter Visit Diagnoses Not on filedocumented in this encounter Care Teams Injection Molding Supervisor Relationship Specialty Start Date End Date Yeison Kim MD PCP - General 06/18/[address] [place] [address] documented as of this encounter
--- OUTSIDE RECORDS SUMMARY | 2021-12-06 15:36 | XMS_ITS | Encounter Summary ---
:1980 Author Organization [employer] Address [address] [place] [address] Care Team Providers Name Role Phone Yeison Kim MD Primary Care Provider Reason for Visit Reason Comments Follow-up Encounter Details Date Type Department Care Team Description 04/16/2015 Office Visit [facility] [address] Astig matism of both Contact Lens L eyes (Primary Dx) [address] [facility] [place], [place] [phone] Social History Tobacco Use Types Packs/Day Years Used Date Smoking Tobacco: Never Assessed Sex Assigned at Date Recorded Not on file documented as of this encounter Progress Notes Jd Evangelista - 04/16/2015 3:57 PM CST Additional Tests Keratometry (Manual) K1 K2 Right 42.00 44.50 Left 42.50 43.75 Contact Lens Exam Current Contact Lens Rx Brand Base Curve Diameter Sphere Cylinder [place] Dist VA Centration Movement Right Air Optix Astig 8.7 14.5 +2.00 -1.75 010 20/50-1 Well-centered Adequate Left Air Optix Astig 8.7 14.5 [place] -0.75 140 20/30-2 Well-centered Adequate Rotation Over-Sphere Over-VA Right 15 degrees temporal [place] NI Left Centers [place] NI Current Contact Lens Rx #2 (Trial Lens, Dispensed) Brand Base Curve Diameter Sphere Cylinder [place] Dist VA Centration Movement Right Biofinity toric 8.70 14.5 +2.00 -1.75 010 20/30-2 Well-centered Adequate Left Biofinity toric 8.70 14.5 [place] -0.75 140 20/30-2 Well-centered Adequate Rotation Over-Sphere Over-VA Right 5 degrees temporal Left Centers Current Contact Lens Rx #3 (Trial Lens, Ordered) Brand Base Curve Diameter Sphere Cylinder [place] Dist VA Centration Movement Right Avaira toric 8.50 14.5 +2.00 -1.75 010 Left Avaira toric 8.50 14.5 [place] -0.75 140 Rotation Over-Sphere Over-VA Right Left Current Contact Lens Rx #4 (Trial Lens, Dispensed) Brand Base Curve Diameter Sphere Cylinder [place] Dist VA Centration Movement Right Oasys toric 8.60 14.5 +2.00 -1.75 010 Left Oasys toric 8.60 14.5 [place] -0.75 140 Rotation Over-Sphere Over-VA Right Left Contact History WTT: 1 Solutions Used: ClearCare Keratometry (Manual) K1 K2 Right 42.00 44.50 Left 42.50 43.75 Additional Notes Tried gas perm cl's with no improvement in vision. Try another soft toric lens. Dispensed trials Rx2, order trials Rx3 & Rx4, recheck 3 weeks. MACIST IN CHARGE documented in this encounter Plan of Treatment Not on filedocumented as of this encounter Visit Diagnoses Diagnosis Astigmatism of both eyes - Primary Astigmatism, unspecified documented in this encounter Care Teams Printing Machine Operator Relationship Specialty Start Date End Date Yeison Kim MD PCP - General 06/18/[address] [place] [address] [place] [address] documented as of this encounter
--- OUTSIDE RECORDS SUMMARY | 2021-12-06 15:36 | XMS_ITS | Encounter Summary ---
:1980 Author Organization [facility] Address [address] [place] [address] Care Team Providers Name Role Phone Yeison Kim MD Primary Care Provider Encounter Details Date Type Department Care Team Description 12/25/2009 Office Visit [facility] edicine Kyle Morocho, [address] MD [place], [place] [address] [phone] [place] [address] (Wo rk) Social History Tobacco Use Types Packs/Day Years Used Date Smoking Tobacco: Never Assessed Sex Assigned at Date Recorded Not on file documented as of this encounter Last Filed Vital Signs Vital Sign Reading Time Taken Comments Blood Pressure 110/76 12/25/2009 10:02 AM CDT Pulse 68 12/25/2009 10:02 AM CDT Temperature - - Respiratory Rate - - Oxygen Saturation - - Inhaled Oxygen Concentration - - Weight 77.1 kg (170 lb) 12/25/2009 10:02 AM CDT C: 77.1 kg Height 179.7 cm (5' 10.75) 12/25/2009 10:02 AM CDT C: 179.7cm Body Mass Index 23.88 12/25/2009 10:02 AM CDT documented in this encounter Progress Notes Kyle Morocho MD - 12/25/2009 12:01 AM CDT NAME: BENJAMIN SMITH MR#: [id number] ACCT: [id number] VISIT: [id number] DICTATING CLINICIAN: Kyle Morocho MD CONFIRM #: [id number] LOC: 1002 CLINIC PROGRESS NOTE DATE OF VISIT: 12/25/2009 : 1980 SUBJECTIVE: Mr. Smith is a 29-year-old who presents to clinic for a preoperative physical prior to a planned electroconvulsive therapy treatment to be performed at [facility]. INDICATION FOR THE PROCEDURE: Intractable depression and anxiety that the patient has had for over the last 15 years. Patient is taking numerous medications including Zoloft, Prozac, Risperdal, Ritalin, Pristiq, Lamictal and Abilify - none of these medications has been adequate to control the patient's symptoms. He does have a history of para suicidal behaviors. Has no history of hallucinations. The electroconvulsive therapy was recommended by Dr. Catherine Montes, who is his psychiatrist. Please see the scanned form in the electronic medical record for full details of this physical. PAST MEDICAL HISTORY: Significant for depression and anxiety, but otherwise unremarkable. SURGICAL HISTORY: Significant for being status post wisdom tooth extraction. The patient has no history of anesthesia complications. He has no family history of anesthesia complications either. Patient is a nonsmoker and drinks 2-3 two or three times weekly. MEDICATIONS: Reviewed and updated in our electronic medical record, and a copy was faxed along with his preoperative form. ADVERSE DRUG REACTIONS: NO KNOWN DRUG ALLERGIES. PHYSICAL EXAM: VITAL SIGNS: Height 70.75 inches. Weight 170. Blood pressure 110/76. Pulse 68 and regular. Remainder of physical exam was unremarkable, see scanned form in electronic medical record for details. TEST RESULTS: Thyroid stimulating hormone was performed and is pending at this time. ASSESSMENT AND PLAN: The patient is low risk for the proposed procedure with no modifiable risk factors identified, assuming that his TSH is within normal limits, and I would recommend proceeding with the ECT at the discretion of the psychiatrist who is supervising this, as well as the attending anesthesiologist. RFM:MEDQ C: CONFIRM #: [id number] RY VENEER MACHINE OPERATOR documented in this encounter Plan of Treatment Not on filedocumented as of this encounter Visit Diagnoses Not on filedocumented in this encounter Care Teams Car Oiler Relationship Specialty Start Date End Date Yeison Kim MD PCP - General 06/18/10 [address] [facility] [place] [address] documented as of this encounter
--- OUTSIDE RECORDS SUMMARY | 2021-12-06 15:36 | XMS_ITS | Encounter Summary ---
:1980 Author Organization [facility] Address [address] [place] [address] Care Team Providers Name Role Phone Yeison Kim MD Primary Care Provider Encounter Details Date Type Department Care Team Description 12/25/2009 PN Conversion Only CRENSHAW CONVERSI ON Kyle Morocho [address] [place] [address] [place], [place] [phone] (Wo rk) Social History Tobacco Use Types Packs/Day Years Used Date Smoking Tobacco: Never Assessed Sex Assigned at Date Recorded Not on file documented as of this encounter Plan of Treatment Not on filedocumented as of this encounter Procedures Procedure Name Priority Date/Time Associated Comments Diagnosis THYROID STIMULATING Routine 12/25/2009 10:52 Resu lts for this HORMONE AM CDT procedure are i n the results section. documented in this encounter Results THYROID STIMULATING HORMONE (12/25/2009 10:52 AM CDT) P athologist Signature Thyroid 0.99 0.20 - HP CONVERSION Stimulating 4.50 mIU/L Hormone Specimen (Source) Anatomical Collection Method Collection Time Re ceived Time Location / / Volume Laterality 12/25/2009 10:52 AM CDT Kyle Morocho MD LAB_1 Performing Organization Address City/State/ZIP Code Phon e Number HP CONVERSION documented in this encounter Visit Diagnoses Not on filedocumented in this encounter Care Teams Soldering Machine Feeder Relationship Specialty Start Date End Date Yeison Kim MD PCP - General 06/18/10 [address] [address] documented as of this encounter
--- OUTSIDE RECORDS SUMMARY | 2021-12-06 15:36 | XMS_ITS | Encounter Summary ---
:1980 Author Organization [facility] Address [address] [place] [address] Care Team Providers Name Role Phone Yeison Kim MD Primary Care Provider Reason for Visit Reason Comments Appt. Needed Encounter Details Date Type Department Care Team Description 04/30/2015 Telephone [facility] [address] Shanel Headley MD Appt. Needed [address] [place] [address] [place], [place] [phone] (Wo rk) Social History Tobacco Use Types Packs/Day Years Used Date Smoking Tobacco: Never Assessed Sex Assigned at Date Recorded Not on file documented as of this encounter Nursing Notes Xuan Rodriguez - 04/30/2015 1:20 PM CST Called pt left message that we don't do testing for Ocular Albinism, but the [facility] does. Told pt to calland get registered at [phone] and the call [phone] to make the appt. Told pt that I would fax records over to the [facility]. AGE CHECKER documented in this encounter Plan of Treatment Not on filedocumented as of this encounter Visit Diagnoses Not on filedocumented in this encounter Care Teams Recording Studio Internship Relationship Specialty Start Date End Date Yeison Kim MD PCP - General 06/18/10 [address] [facility] [facility] [place] [address] documented as of this encounter
--- OUTSIDE RECORDS SUMMARY | 2021-12-06 15:36 | XMS_ITS | Encounter Summary ---
:[address] [facility] [facility] Address [address] [facility] [place] [address] Care Team Providers Name Role Phone Yeison Kim MD Primary Care Provider Encounter Details Date Type Department Care Team Description 12/22/2009 PN Conversion Only GLEN BURNIE CONVERSI ON [address] [place] [address] Social History Tobacco Use Types Packs/Day Years Used Date Smoking Tobacco: Never Assessed Sex Assigned at Date Recorded Not on file documented as of this encounter Plan of Treatment Not on filedocumented as of this encounter Visit Diagnoses Not on filedocumented in this encounter Care Teams Seat Joiner Relationship Specialty Start Date End Date Yeison Kim MD PCP - General 06/18/[address] [place] [address] [place] [address] documented as of this encounter
--- OUTSIDE RECORDS SUMMARY | 2021-12-06 15:36 | XMS_ITS | Encounter Summary ---
:1980 Author Organization [facility] Address [address], [place] [address] Care Team Providers Name Role Phone Yeison Kim MD Primary Care Provider Encounter Details Date Type Department Care Team Description 03/14/2007 PN Conversion Only ROLL ON WORKER 3850 CONV [address] [place] [address] Social History Tobacco Use Types Packs/Day Years Used Date Smoking Tobacco: Never Assessed Sex Assigned at Date Recorded Not on file documented as of this encounter Plan of Treatment Not on filedocumented as of this encounter Visit Diagnoses Not on filedocumented in this encounter Care Teams Director Student Union Relationship Specialty Start Date End Date Yeison Kim MD PCP - General 06/18/[address] [place] [address] documented as of this encounter
--- OUTSIDE RECORDS SUMMARY | 2021-12-06 15:36 | XMS_ITS | Encounter Summary ---
:1980 Author Organization [facility] Address [address] [place] [address] Care Team Providers Name Role Phone Yeison Kim MD Primary Care Provider Reason for Visit Reason Comments Other Encounter Details Date Type Department Care Team Description 04/14/2010 Telephone [facility], Message Other [address] [place], [place] [address] Social History Tobacco Use Types Packs/Day Years Used Date Smoking Tobacco: Never Assessed Sex Assigned at Date Recorded Not on file documented as of this encounter [facility], Message - 04/14/2010 3:35 PM CST Front Line Sx Call Caller Name/Relationship:suleman Alexander Primary Beating Machine Operator:Unassigned Symptom or request? pt has some questions about std's. Is appointment scheduled & when? no Labor Relations Analyst:suleman Alexander Best call back number:[phone] Pharmacy Name:n/a Is it OK to leave a confidential message on this voicemail? Y *[id number] Created on 14Apr2010 3:35pm by MARLENI BEAVERS K On 14Apr2010 4:11pm RADHA ALBERT wrote: Pt states that he has had Electro shock therapy and does not remember getting his std results and if he was treated for anything. Told pt his STD tests were clean and did not need to be treated for anything. KE OFF MACHINE OPERATOR documented in this encounter Plan of Treatment Not on filedocumented as of this encounter Visit Diagnoses Not on filedocumented in this encounter Care Teams Larder Cook Relationship Specialty Start Date End Date Yeison Kim MD PCP - General 06/18/[address] [place] [address] documented as of this encounter
--- OUTSIDE RECORDS SUMMARY | 2021-12-06 15:36 | XMS_ITS | Encounter Summary ---
:1980 Author Organization [facility] Address [address] [place] [address] Care Team Providers Name Role Phone Yeison Kim MD Primary Care Provider Reason for Visit Reason Comments CONSULT Encounter Details Date Type Department Care Team Description 04/08/2015 Office Visit [facility] [address] Evangelista Astig matism of both Contact Lens L eyes (Primary Dx) [address]00 [facility] [place], [place] [address] Social History Tobacco Use Types Packs/Day Years Used Date Smoking Tobacco: Never Assessed Sex Assigned at Date Recorded Not on file documented as of this encounter Progress Notes Jd Evangelista - 04/16/2015 10:22 AM CST Additional Tests Keratometry Topography Contact Lens Exam Keratometry Topography Additional Notes Showed topography to Dr. Leigh, not keratoconus, diagnosis astigmatism. No coverage with insurance with this diagnosis. Discussed gas perm cl's. AULIC JACK OPERATOR Jd Evangelista - 04/08/2015 9:08 AM CST Additional Tests Keratometry Topography Contact Lens Exam Keratometry Topography Additional Notes Discussed options today, gas perm vs. scleral cl's. Have not heard on insurance coverage yet, Paolo checking. Will call pt. when insurance coverage is known. AULIC JACK OPERATOR documented in this encounter Plan of Treatment Not on filedocumented as of this encounter Visit Diagnoses Diagnosis Astigmatism of both eyes - Primary Astigmatism, unspecified documented in this encounter Care Teams Medical Insurance Claims Specialist Relationship Specialty Start Date End Date Yeison Kim MD PCP - General 06/18/10 [address] [place] [address] documented as of this encounter
--- OUTSIDE RECORDS SUMMARY | 2021-12-06 15:36 | XMS_ITS | Encounter Summary ---
:1980 Author Organization [facility] Address [address], [place] [address] Care Team Providers Name Role Phone Yeison Kim MD Primary Care Provider Reason for Visit Reason Comments Other Encounter Details Date Type Department Care Team Description 10/19/2009 Telephone CONV PHONE NOTE Ashley Romero RN Other [address] [place] [address] Social History Tobacco Use Types Packs/Day Years Used Date Smoking Tobacco: Never Assessed Sex Assigned at Date Recorded Not on file documented as of this encounter Progress Notes Ashley Romero RN - 10/19/2009 11:01 PM CDT Phone Note filed by Ashley Romero RN at 07/10/10 1507 Author: Ashley Romero RN Service: (none) Author Type: Registered Nurse Filed: 07/10/10 1502 Note Time: 10/19/09 230 Status: Signed Meat And Poultry Inspector: Ashley Romero RN (Registered Nurse) CLINICIAN FOLLOW-UP: non IMPRESSION: Abdominal Pain Male. SYMPTOMS: Patient calls. He ate dinner at [employer]. He later developed a stomach ache. He feels nauseated with no vomiting but feels like he could vomit. No diarrhea . No fever. Patient asks advise. Reviewed. CARE ADVICE: HOME CARE ADVICE FOR MILD ABDOMINAL PAIN REASSURANCE: A mild stomachache can be caused by indigestion, gas pains or overeating. Sometimes a stomachache signals the onset of a vomiting illness due to a viral gastroenteritis (stomach flu). REST: Lie down and rest until you feel better. FLUIDS: Sip clear fluids only (e.g., water, flat soft drinks or half strength fruit juice) until the pain has been gone for over 2 hours. Then slowly return to a regular diet. DIET: Slowly advance diet from clear liquids to a bland diet. Avoid alcohol or caffeinated beverages. Avoid greasy or fatty foods. EXPECTED COURSE: With harmless causes, the pain is usually better or goes away within 2 hours. With viral gastroenteritis (stomach flu), belly cramps may precede each bout of vomiting or diarrhea and may last 2-3 days. With serious causes (such as appendicitis) the pain becomes constant and more severe. CALL BACK IF: Abdominal pain is constant and present for more than 2 hours. Abdominal pains come and go and are present for more than 24 hours, you become worse. PLAN: Home care. Advised to call back if any of the following occur: symptoms worsen or persist, any other questions or concerns. Patient/Caller agrees with plan and denies additional questions. References Used: Alfredo Adult Telephone Protocols--Abdominal Pain Male. *SH~THOMP~ABPAINM ~ Created on 19Oct2009 11:01pm by ASHLEY ROMERO REPAIRER TOWER documented in this encounter Plan of Treatment Not on filedocumented as of this encounter Visit Diagnoses Not on filedocumented in this encounter Care Teams Triple Valve Tester Relationship Specialty Start Date End Date Yeison Kim MD PCP - General 06/18/[address] [place] [address] documented as of this encounter
--- OUTSIDE RECORDS SUMMARY | 2021-12-06 15:36 | XMS_ITS | Encounter Summary ---
:1980 Author Organization [facility] Address [address] [place] [address] Care Team Providers Name Role Phone Yeison Kim MD Primary Care Provider Encounter Details Date Type Department Care Team Description 03/14/2007 Office Visit [facility] [address] Family Faina Vila MD [facility] [address] [facility] [address] [facility] [place], [place] [address] [place] [address] [phone] Social History Tobacco Use Types Packs/Day Years Used Date Smoking Tobacco: Never Assessed Sex Assigned at Date Recorded Not on file documented as of this encounter Last Filed Vital Signs Vital Sign Reading Time Taken Comments Blood Pressure 116/64 03/14/2007 3:21 PM SHIPPING AND RECEIVING ASSISTANT Pulse 66 03/14/2007 3:21 PM SHIPPING AND RECEIVING ASSISTANT Temperature - - Respiratory Rate - - Oxygen Saturation - - Inhaled Oxygen Concentration - - Weight 78.9 kg (173 lb 15.8 oz) 03/14/2007 3:21 PM SHIPPING AND RECEIVING ASSISTANT C: 78.9kg Height - - Body Mass Index - - documented in this encounter Progress Notes Faina Verduzco MD - 03/14/2007 12:01 AM CST Progress Notes signed by Fiana Verduzco MD at 03/21/07 0437 Author: Faina Verduzco MD Service: (none) Author Type: Physician Filed: 07/10/10 0119 Note Time: 03/14/07 0001 Status: Signed Flour Worker: Faina Verduzco MD (Physician) NAME: BENJAMIN SMITH MR#: [id number] ACCT: [id number] VISIT: [id number] DICTATING CLINICIAN: Faina Verduzco MD JOB: [id number] LOC: 402 CLINIC PROGRESS NOTE DATE OF VISIT: 03/14/2007 SUBJECTIVE: The patient is a 26-year-old male who came in today to establish a primary care and also address management of major depression. States he was diagnosed with depression at age 20 ; was managed by a psychiatrist and was taking fluoxetine 60 mg daily. Stopped taking medication in 11/2006. Stopped seeing psychiatrist . Plans to reestablish psychiatry care in the near future. He started seeing a psychotherapist a week ago. He states that depressed mood is becoming more of a problem over the last couple of weeks. He broke his long relationship with a girlfriend. He feels depressed, down, has low interest and pleasure in doing things. He admits on having suicidal ideations, and even had a plan to take an excessive dose of medication. However, he states that he would not do anything bad to himself. Suicidal ideation is occasional. PHQ-9 score is 7. See PHQ-9 SDoc form for details. REVIEW OF SYSTEMS: Negative for fatigue, insomnia. Admits he has some problems with appetite. Otherwise the complete review of systems is negative. PAST MEDICAL HISTORY: Significant for major depression, allergic rhinitis. MEDICATION LIST: Reviewed and updated in LastWord, the patient takes no medications at present time. ADR/ALLERGIES: HAS NO KNOWN DRUG ALLERGIES. Problem list: Reviewed and updated in LastWord. FAMILY AND MEDICAL HISTORY: Significant for depression in several family members including sister, mother, and father. The patient is single. Denies of illicit drugs use and excessive use of alcohol. Does not smoke. OBJECTIVE: VS: Reviewed, see LastWord flow sheet. The patient appears in NAD. His affect is depressed. Alert and oriented x3. HEENT: Normal. NECK: Supple, no lymphadenopathy, no thyromegaly. NEUROLOGIC: Nonfocal. LUNGS: Clear to auscultation, bilaterally. HEART: Regular rate and rhythm. No murmurs, rubs, or gallops. Normal S1 and S2. SKIN: No rashes, cyanosis. ASSESSMENT: Major depression. Suicidal risk is low. Start fluoxetine in dose 40 mg daily. Continue to follow with a psychotherapist. Plan to re-establish psychiatry care. He will followup in 1 month in our clinic ,if not able to get an appointment with a psychiatrist during this time frame. The patient was contracted for safety ; adviced to contact clinic, or nurse line if suicidal ideation worsen. PLAN: BSS:[id number] C: 03/18/07 18:19 DOCUMENT: [id number] PING AND RECEIVING ASSISTANT documented in this encounter Plan of Treatment Not on filedocumented as of this encounter Visit Diagnoses Not on filedocumented in this encounter Care Teams Nurse Tech Relationship Specialty Start Date End Date Yeison Kim MD PCP - General 06/18/[address] [place] [address] documented as of this encounter
--- OUTSIDE RECORDS SUMMARY | 2021-12-06 15:36 | XMS_ITS | Encounter Summary ---
:1980 Author Organization [facility] Address [address], [place] [address] Care Team Providers Name Role Phone Yeison Kim MD Primary Care Provider Encounter Details Date Type Department Care Team Description 01/25/2010 PN Conversion Only DOVRAY CONVERSI ON Mirella Morocho [address] [place] [address] [place], [place] [address] (Wo rk) Social History Tobacco Use Types Packs/Day Years Used Date Smoking Tobacco: Never Assessed Sex Assigned at Date Recorded Not on file documented as of this encounter Plan of Treatment Not on filedocumented as of this encounter Procedures Procedure Name Priority Date/Time Associated Comments Diagnosis HIV ANTIBODY Routine 01/25/2010 10:01 Results for this AM CHEMICAL DEPENDENCY THERAPIST procedure are i n the results section. RPR BLOOD Routine 01/25/2010 10:01 Results for this AM CHEMICAL DEPENDENCY THERAPIST procedure are i n the results section. SEXUALLY TRANSMITTED Routine 01/25/2010 9:55 AM R esults for this DISEASE PROBE CHEMICAL DEPENDENCY THERAPIST procedure are in the results section. documented in this encounter Results RPR BLOOD (01/25/2010 10:01 AM CHEMICAL DEPENDENCY THERAPIST) P athologist Signature RPR Non Reac Nonreactive HP CONVERSION Specimen (Source) Anatomical Collection Method Collection Time Re ceived Time Location / / Volume Laterality 01/25/2010 10:01 AM CHEMICAL DEPENDENCY THERAPIST Mirella Morocho MD LAB_1 Performing Organization Address City/State/ZIP Code Phon e Number HP CONVERSION HIV ANTIBODY (01/25/2010 10:01 AM CHEMICAL DEPENDENCY THERAPIST) Analysis Performed At Patho logist Time Signature HIV 1/HIV 2 Non-React No normal HP CONVERSION range Specimen (Source) Anatomical Collection Method Collection Time Re ceived Time Location / / Volume Laterality 01/25/2010 10:01 AM CHEMICAL DEPENDENCY THERAPIST Mirella Morocho MD LAB_1 Performing Organization Address City/State/ZIP Code Phon e Number HP CONVERSION Sexually Transmitted Disease Probe (01/25/2010 9:55 AM CHEMICAL DEPENDENCY THERAPIST) Patholo gist Method Time Signature Sexually SEE TEXT HP CONVERSION Transmitted Disease Probe Comment: STDPR Sexually Transmitted Disease DNA Probe ? ORDERED BY: MIRELLA MOROCHO SOURCE: Urine for molecular testing ?COLLECTED: ??01/25/10 09:55 ? PLATED: ? 01/25/10 09:55 Chlamydia trachomatis DNA Probe ?FINAL ? 01/27/10 10:02 Chlamydia trachomatis NEGATIVE by DNA a mplification The amplified DNA assay is cleared by [facility] for non-medicolegal diagnostic testing in [facility] adult population. Neisseria gonorrhea DNA Probe ?FINAL ? 01/27/10 10:02 Neisseria gonorrhea NEGATIVE by DNA amp lification. The amplified DNA assay is cleared by [facility] for non-medicolegal diagnostic testing in [facility] adult population. Specimen (Source) Anatomical Collection Method Collection Time Re ceived Time Location / / Volume Laterality 01/25/2010 9:55 AM CHEMICAL DEPENDENCY THERAPIST Mirella Morocho MD LAB_1 Performing Organization Address City/State/ZIP Code Phon e Number HP CONVERSION documented in this encounter Visit Diagnoses Not on filedocumented in this encounter Care Teams Picker Box Operator Relationship Specialty Start Date End Date Yeison Kim MD PCP - General 06/18/10 [address] [place] [address] documented as of this encounter
--- OUTSIDE RECORDS SUMMARY | 2021-12-06 15:36 | XMS_ITS | Encounter Summary ---
:[address] [facility] Address [address] [place] [address] Care Team Providers Name Role Phone Yeison Kim MD Primary Care Provider Encounter Details Date Type Department Care Team Description 07/15/2010 PN Conversion Only [facility] [address] raffaele Pagan MD Family Medicine 3800 [facility] 3850 [place] [address] [phone] Social History Tobacco Use Types Packs/Day Years Used Date Smoking Tobacco: Never Assessed Sex Assigned at Date Recorded Not on file documented as of this encounter Plan of Treatment Not on filedocumented as of this encounter Visit Diagnoses Not on filedocumented in this encounter Care Teams Physical Aerodynamicist Relationship Specialty Start Date End Date Yeison Kim MD PCP - General 06/18/[address] [place] [address] [place] [address] documented as of this encounter
--- OUTSIDE RECORDS SUMMARY | 2021-12-06 15:36 | XMS_ITS | Encounter Summary ---
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 [address] Social History Tobacco Use Types Packs/Day Years Used Date Smoking Tobacco: Never Assessed Sex Assigned at Date Recorded Not on file documented as of this encounter Patient Instructions Patient InstructionsCarmelina Sloan COT - 04/29/2015 9:18 AM CST Call immediately with any increase in floaters, flashes, decreased vision or the development of a shadow in the peripheral vision. NING LEAD documented in this encounter Progress Notes Shanel Kramer MD - 04/29/2015 2:53 PM CST New Patient to this provider. The medications, allergies, and past medical and social histories in the medical record were reviewed. Review of Systems: Pertinent items are noted in patient history; the remainder of the complete review of systems is negative. 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 no recent change in vision. Never was correctable to 20/20 since childhood. denied vitiligo, no easy bruising or frequent infections. He's the only blonde in the family. Refer to genetics department for further testing. Discussed visual prognosis (no evidence of nystagmus, he has driving vision and no evident strabismus). No treatment available at this time but referred to clinical trials website. Follow up with Retina PRN. F/U yearly for glasses recheck. Carmelina Sloan, scribing for Shanel Kramer MD. Further details of the management plan can be found in the Patient Instructions section which was printed and given to the patient. Attending Physician Attestation: Complete documentation of historical and exam elements from today'sencounter can be found in the full encounter summary report (not reduplicated in this progress note). I personally obtained the chief complaint(s) and history of present illness. I confirmed and editedas necessary the review of systems, past medical/surgical history, family history, social history, and examination findings as documented by others; and I examined the patient myself. I personally reviewed the relevant tests, images, and reports as documented above. I formulated and edited as necessary the assessment and plan and discussed the findings and management plan with the patient and family- Shanel Kramer MD NING LEAD documented in this encounter Plan of Treatment Not on filedocumented as of this encounter Visit Diagnoses Diagnosis Blurred vision, bilateral - Primary Other specified visual disturbances Foveal hypoplasia associated with mutati on in PAX6 gene Ocular albinism, unspecified ([facility]C) documented in this encounter Care Teams Machine Puller Relationship Specialty Start Date End Date Yeison Kim MD PCP - General 06/18/[address] [place] [address] documented as of this encounter
--- OUTSIDE RECORDS SUMMARY | 2021-12-06 15:36 | XMS_ITS | Encounter Summary ---
:1980 Author Organization [employer] Address [address], [place] [address] Care Team Providers Name Role Phone Yeison Kim MD Primary Care Provider Reason for Visit Reason Comments Eye Exam Encounter Details Date Type Department Care Team Description 03/26/2015 Office Visit [facility] [address] Exam ination of eyes and vision (Primary Dx); Ophthalmology J, OD Blurred vision [address] [place] [address] [phone] (Wo rk) Social History Tobacco Use Types Packs/Day Years Used Date Smoking Tobacco: Never Assessed Sex Assigned at Date Recorded Not on file documented as of this encounter Patient Instructions Patient InstructionsVanabena-Alla Reyes - 03/26/2015 11:38 AM CST Things to remember: -Allow at least 2-3 hours of waking time before bed, without your contact lenses in--for your eyes to breathe (when you are asleep, your lids are closed, therefore your eyes are also NOT receiving oxygen). Keep max hours of wear between 10-15 hours per day--shorter when possible. -NO sleeping overnight with contacts in, to prevent excessive dryness/infections. -NO swimming/showering with contacts in--due to parasites in water. Use Systane Ultra drops 2-3x/day or as needed, to keep your eyes lubricated due to dryness. -Use Clear Care (neutralizes in 6 hrs) to clean your contact lenses every night. Buy a separate bottle of saline for rinsing/rewetting--NO multi-purpose solution. After inserting your contact lenses inthe morning--dump the solution out of case, clean & rinse out case with hot water, then let it air dry and repeat the cleaning process @ night. Clean and rub the inside--especially the inside bottom of the contact case, with soap once or twice per week. It is recommended to replace the contact lens case every 2-3 months. -Change your contact lenses every month (for now) until after your refit. Not doing so can lead to: -Protein build-up on the surface of your contact lenses, which can irritate under your eyelids, then lead to a more serious condition known as Giant Papillary Conjunctivitis, resulting in the inability to wear contact lenses in the future; -Less breathability in the contact lenses and less visibility due to protein build-up. -Irritation the surface of your corneas, causing Superficial Punctate Keratitis, making your corneas susceptible to bacteria getting in your corneas, leading to painful corneal ulcers, which can scar your corneas. There is a 60-day warranty period to make any changes to your rx, or to address any concerns you may have. You may incur additional charges if follow-up visits extend beyond 60 days. 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 It is important that you have an annual eye exam to monitor the condition for progression of the disease. Follow-up as planned in 1-2 weeks to have a contact lens fitting for Keratoconus. If you have any questions, or need to order contact lenses, please call [phone]. E SETTER documented in this encounter Progress Notes Mango Navarro, OD - 04/23/2015 9:11 AM CST Vision was not significantly improved with rigid contacts. Will schedule retina consult to assess decreased acuity. 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 Mango Minor, OD - 04/23/2015 9:08 AM CST Patient is alert. Complete eye exam. Spectacle Rx given for refractive error. 20/30 best corrected acuity in both eyes with spectacles. Pentacam scan shows inferior steepening ofboth corneas, possibly keratoconus. I expect he will have better acuity with a rigid lens fit. We discussed possible progression of keratoconus, and potential treatment with corneal cross-linking. Recheck 1 years or sooner as needed. Alla Dimas - 03/26/2015 3:56 PM CST Base Eye Exam Visual Acuity (Snellen - Linear) Right Left Dist cc 20/50 +2 20/50 Near cc J3 be's J3 be's Correction: Contacts Tonometry (Non-contact air puff, 10:27 AM) Right Left Pressure 8 9 Additional Tests Keratometry (Manual) K1 K2 Right 42.00 44.25 Left 42.25 43.50 Refraction Manifest Refraction Sphere Cylinder Temple Dist Right +0.25 +1.75 098 20/30+2 Left -0.75 +0.75 045 20/30 Contact Lens Exam Current Contact Lens Rx Brand Base Curve Diameter Sphere Cylinder Temple Dist VA Near VA Centration Right Air Optix Astig 8.7 14.5 +1.50 -1.75 180 50+2 20/40BE Well-centered Left Air Optix Astig 8.7 14.5 [place] -1.25 150 20/50 J3BE Well-centered Movement Over-Sphere Right Adequate NI Left Adequate NI Current Contact Lens Rx #2 (Trial Lens, Dispensed) Brand Base Curve Diameter Sphere Cylinder Temple Dist VA Near VA Centration Right Air Optix Astig 8.7 14.5 +2.00 -1.75 010 Left Air Optix Astig 8.7 14.5 [place] -0.75 140 Movement Over-Sphere Right Left Contact History AWT: 12 Replacement Frequency: Monthly Solutions Used: OptiFree PM Keratometry (Manual) K1 K2 Right 42.00 44.25 Left 42.25 43.50 Final Contact Lens Rx Brand Base Curve Diameter Sphere Cylinder Temple Right Air Optix Astig 8.7 14.5 +2.00 -1.75 010 Left Air Optix Astig 8.7 14.5 [place] -0.75 140 Expiration Date: 03/26/2017 Replacement: Monthly Solutions: ClearCare/sline Additional Notes TBUT: RE-1-2sec/LE-1-4sec Mild SPK-RE/Trace SPK-LE Pt c/o not seeing well--has felt that CL never really worked well for him. Feels like with CL in--it's harder to focus. Pt states that it was hard fitting him at previous clinic as well. Pt does have a very short TBUT--not sure if that's contributing to his lack of successful CL wear. Sugg. pt use Systane Ultra drops 2-3x/day. Also switched pt to Clear Care--went over instructions/sample gvn. Pt told to use saline for rinsing/rewetting. Told pt to dump solution out of case in the morning after inserting CL, clean & rinseout case, then let it air dry. Went over option of refitting to other brands of CL to see if it can improve his vision and comfort level with CL wear. Quoted pt @ $70 refit fee--pt will consider. Rec. pt switch to Clear Care first to see if things will improve first. Some changes in vision--will update. Pt was diagnosed with the start of Keratoconus in BE today. Corneal mapping was done--confirmed per Dr. Navarro. Went over possible specialty refit with pt--sugg. he schedule a specialty fit with [facility]. Quoted refit fee at $300-$500 with specialty gpcl starting anywhere from $350-$750 per set. Told pt his insurance may cover part of the costs--tols him he will learn more at the consult. Trials gvn today of updated rx--final for now for scl. Pt to schedule Keratoconus Consult. E SETTER documented in this encounter Plan of Treatment Not on filedocumented as of this encounter Visit Diagnoses Diagnosis Examination of eyes and vision - Primary Blurred vision Other specified visual disturbances documented in this encounter Care Teams Garage Door Installer Relationship Specialty Start Date End Date Yeison Kim MD PCP - General 06/18/10 [facility] [place] [address] documented as of this encounter
--- OUTSIDE RECORDS SUMMARY | 2021-12-06 15:36 | XMS_ITS | Encounter Summary ---
:1980 Author Organization [facility] Address [address], [place] [address] Care Team Providers Name Role Phone Yeison Kim MD Primary Care Provider Encounter Details Date Type Department Care Team Description 08/12/2009 PN Conversion Only COLLECTIONS CURATOR [address] [address] Social History Tobacco Use Types Packs/Day Years Used Date Smoking Tobacco: Never Assessed Sex Assigned at Date Recorded Not on file documented as of this encounter Plan of Treatment Not on filedocumented as of this encounter Visit Diagnoses Not on filedocumented in this encounter Care Teams Zoo Director Relationship Specialty Start Date End Date Yeison Kim MD PCP - General 06/18/[address] [place] [address] documented as of this encounter
--- OUTSIDE RECORDS SUMMARY | 2021-12-06 15:36 | XMS_ITS | Encounter Summary ---
:1980 Author Organization [facility] Address [address], [place] [address] Care Team Providers Name Role Phone Yeison Kim MD Primary Care Provider Reason for Visit Reason Comments Other Encounter Details Date Type Department Care Team Description 08/12/2009 Telephone [place] [address] [facility] Karyn Hankins RN Other Medicine [address] [place] [address]. [place], [place] [address] Social History Tobacco Use Types Packs/Day Years Used Date Smoking Tobacco: Never Assessed Sex Assigned at Date Recorded Not on file documented as of this encounter Progress Notes Karyn Hankins RN - 08/12/2009 6:25 AM CDT Phone Note filed by Karyn Hankins RN at 07/10/10921 Author: Karyn Hankins RN Service: (none) Author Type: Registered Nurse Filed: 07/10/10921 Note Time: 08/12/09624 Status: Signed House Principal: Karyn Hankins RN (Registered Nurse) CLINICIAN FOLLOW-UP: none IMPRESSION: Rectal Bleeding. SYMPTOMS: Rectal bleeding noted after a stool the last 3 days. Blood is not mixed in the stool. Has rectal pain with a possible hemorrhoid noted. Has never been diagnosed with a hemorrhoid. Using Preparation H but not really helping. Wondering what else to do. Denies emergent symptoms Problem List: reviewed in electronic medical record. Allergies: Reviewed/updated in electronic medical record. Medications: Reviewed/updated in electronic medical record. Advised to call back if any of the following occur: symptoms worsen or persist, any other questions or concerns. PLAN: SCHEDULE APPOINTMENT WITHIN 12-24 HOURS- appt booked at 11:[address] Pagan. Patient/Caller agrees with plan and denies additional questions. References Used: [facility] Adult Telephone Protocols--Rectal Bleeding with interim home management advise given. Call Complete. *SH~THOMP~RECBLEED ~ Created on 12Aug2009 6:25am by KARYN HANKINS UCT SALES REPRESENTATIVE documented in this encounter Plan of Treatment Not on filedocumented as of this encounter Visit Diagnoses Not on filedocumented in this encounter Care Teams Community Health Advocate Relationship Specialty Start Date End Date Yeison Kim MD PCP - General 06/18/[address] [place] [address] documented as of this encounter
--- OUTSIDE RECORDS SUMMARY | 2021-12-06 15:36 | XMS_ITS | Encounter Summary ---
:1980 Author [facility] Address [address] [place] [address] Care Team Providers Name Role Phone Yeison Kim MD Primary Care Provider Encounter Details Date Type Department Care Team Description 08/12/2009 Office Visit [facility] [address] [facility] Kang Pagan MD [facility] [address] [facility] [address] [facility] [place], [place] [address] [place] [id number] [phone] Social History Tobacco Use Types Packs/Day Years Used Date Smoking Tobacco: Never Assessed Sex Assigned at Date Recorded Not on file documented as of this encounter Last Filed Vital Signs Vital Sign Reading Time Taken Comments Blood Pressure 96/62 08/12/2009 11:39 AM CDT Pulse 68 08/12/2009 11:39 AM CDT Temperature - - Respiratory Rate - - Oxygen Saturation - - Inhaled Oxygen Concentration - - Weight 81.4 kg (179 lb 6.2 oz) 08/12/2009 11:39 AM C: 8 1.4kg CDT Height - - Body Mass Index - - documented in this encounter Progress Notes Kang Pagan MD - 08/12/2009 12:01 AM CDT Progress Notes signed by Kang Pagan MD at 08/13/09 1117 Author: Kang Pagan MD Service: (none) Author Type: Physician Filed: 07/11/10 0032 Note Time: 08/12/09 0001 Status: Signed Fixed Income Analyst: Kang Pagan MD (Physician) NAME: BENJMAIN SMITH MR#: [id number] ACCT: [id number] VISIT: [id number] DICTATING CLINICIAN: KANG PAGAN MD CONFIRM #: [id number] LOC: 402 CLINIC PROGRESS NOTE DATE OF VISIT: 08/12/2009 SUBJECTIVE: : 1980. Has had rectal pain, some bleeding noted on his underwear, pain with bowel movement. Also has noted lesions on his penis for 1 year. OBJECTIVE: He did have a healing external hemorrhoid which was small. He also had moderate amount of genital warts on the penis and into the mons area. ASSESSMENT: Hemorrhoids, genital warts. PLAN: For the hemorrhoid, soften stools, Tucks, topical agents discussed. For the genital warts, will treat with topical podofilox. Proper method discussed. If it does not clear, would probably recommend urological consultation. DIAGNOSIS: Hemorrhoids, genital warts. STM:[id number] C: 08/13/09 10:28 CONFIRM #: [id number] documented in this encounter Plan of Treatment Not on filedocumented as of this encounter Visit Diagnoses Not on filedocumented in this encounter Care Teams Public Relations Analyst Relationship Specialty Start Date End Date Yeison Kim MD PCP - General 06/18/[address] [place] [address] documented as of this encounter
--- OUTSIDE RECORDS SUMMARY | 2021-12-06 15:36 | XMS_ITS | Encounter Summary ---
:1980 Author Organization [facility] Address [address], [place] [address] Care Team Providers Name Role Phone Yeison Kim MD Primary Care Provider Reason for Visit Reason Comments Other Encounter Details Date Type Department Care Team Description 03/07/2007 Telephone CONV PHONE NOTE Madelin Cuevas RN Other [address] [place] [address] Social History Tobacco Use Types Packs/Day Years Used Date Smoking Tobacco: Never Assessed Sex Assigned at Date Recorded Not on file documented as of this encounter Progress Notes Mdaelin Cuevas RN - 03/07/2007 12:57 AM CST Phone Note filed by Madelin Cuevas RN at 07/07/10 1102 Author: Madelin Cuevas RN Service: (none) Author Type: (none) Filed: 07/07/102 Note Time: 03/07/0756 Status: Signed Filter Screen Cleaner: Lupis Conversion CLINICIAN FOLLOW-UP: None IMPRESSION: Mental health concern SEMI-URGENT SYMPTOMS: Possible symptoms of depression, associated with acute stress, anxiety, worry, stopped medication for depression on own, Additional Symptoms: Mom calling due to patient coming home tonight. He is very depressed. He had been counting on a new job but it fell through yesterday and his girlfriend broke up with him tonight. He has told mom he doesn't know if he can make it on his own till morning. She says he is willing to go to hospital wants to know where is the best place to bring him. Says he is not a threat to her or him self at this time. Patient looking for help. Denies any emergent symptoms PATIENT INFORMATION: Problem List: Reviewed today in [employer] INTERIM/HOME MANAGEMENT RECOMMENDATIONS: Mom will bring him to [facility]. Mom agrees this is the best choice. They will check on his insurance. Advised to call back if any of the following occur: any other questions or concerns. PLAN: SCHEDULE APPOINTMENT WITHIN 12 HOURS Patient/Caller agrees with plan and denies additional questions. Reference(s) Used: [facility] [place] Depression Nursing Reference - Adult, Call Complete. *SH~PNNL~MHDEP ~ Created on [id number] 0:57am by MADELIN CUEVAS RNOON BABYSITTER documented in this encounter Plan of Treatment Not on filedocumented as of this encounter Visit Diagnoses Not on filedocumented in this encounter Care Teams Forensic Identification Specialist Relationship Specialty Start Date End Date Yeison Kim MD PCP - General 06/18/[address] [place] [address] [place] [address] documented as of this encounter
--- OUTSIDE RECORDS SUMMARY | 2021-12-06 15:36 | XMS_ITS | Encounter Summary ---
:1980 Author Organization [facility] Address [address] [place] [id number] Care Team Providers Name Role Phone Flakita Kim MD Primary Care Provider Encounter Details Date Type Department Care Team Description 09/01/2003 PN Conversion Only [facility] 380 Manny Mora MD Allergy [address] [facility] [address] [place] [address] [id number] [phone] Social History Tobacco Use Types Packs/Day Years Used Date Smoking Tobacco: Never Assessed Sex Assigned at Date Recorded Not on file documented as of this encounter Progress Notes Kyle Mora MD - 09/01/2003 12:01 AM CDT Progress Notes signed by Kyle Mora MD at 11/27/03 1703 Author: Kyle Mora MD Service: (none) Author Type: Physician Filed: 07/08/10 2296 Note Time: 09/01/03 0001 Status: Signed Delinquent Tax Collector Assistant: yKle Mora MD (Physician) NAME: TIANNA SMITH MR: [id number] ACCT: [id number] VISIT: [id number] DICTATING CLINICIAN: KYLE MORA MD JOB: [id number] CLINIC PROGRESS NOTE DATE OF VISIT: 09/01/2003 SUBJECTIVE: : 1980Brayan Alexander is a 22-year-old male with allergic rhinitis who has generally been quite stable with meds. He will be a senior at [employer] this year, majoring in high school education and social studies. He does really quite well with Zyrtec 10 mg once a day and has not had to use any of the Patanol eyedrops. He has allergies mainly to grass as well as dust mites, and takes his meds year-round. OBJECTIVE: VS: BP: 110/60. Ht: 71 in. Wt: 166 lb. Exam reveals a healthy-appearing, 22-year-old male. HEENT: Normal. Nasal airway reveals minimal turbinate swelling. Pharynx is clear. CHEST: Clear. Heart sounds are normal. The rest of the exam was negative. ASSESSMENT: Allergic rhinitis. PLAN: Tianna is doing well and is very happy with the regimen of taking Zyrtec regularly. Refills were provided, and we will schedule him back in one year. RAW:[id number] C: 09/01/03 19:27 DOCUMENT: [id number] Kyle Mora MD - 08/22/2002 12:01 AM CDT Progress Notes signed by Kyle Mora MD at 11/10/02 1405 Author: Kyle Mora MD Service: (none) Author Type: Physician Filed: 07/08/10 1520 Note Time: 08/22/02 0001 Status: Signed Delinquent Tax Collector Assistant: Kyle Mora MD (Physician) NAME: TIANNA SMITH MR: [id number] ACCT: [id number] VISIT: [id number] DICTATING CLINICIAN: KYLE MORA MD JOB: [id number] CLINIC PROGRESS NOTE DATE OF VISIT: 08/22/2002 SUBJECTIVE: Tianna us a 21-year-old male with allergic rhinitis who mainly has problems during August during the grass season, although he is allergic to dust mites. The last few years, we have been able to control almost all his symptoms with the Zyrtec 10 mg once a day. Occasionally he will complain of some eye symptoms, but he is doing well, and is not in the market for a nasal steroid. 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 OBJECTIVE: VS: BP: 122/72. Ht: 71 in. Wt: 164 lb. Exam reveals a 21-year-old male. HEENT: Reveals normal TMs. His eyes are clear. Turbinates are slightly pale, moderately enlarged with minimal secretions. Pharynx is clear. CHEST: Clear. Heart sounds are normal. The rest of the exam was negative. ASSESSMENT: Allergic rhinitis. PLAN: Tianna is doing well and seems to be quite stable on the current regimen. We will continue the Zyrtec, and samples of Patanol eyedrops to use p.r.n. were provided. We will have him return in one year. TT: CT: RAW:[id number] C: 08/22/02 15:22 DOCUMENT: [id number] Phone Note, Clinician - 07/23/2002 12:01 AM CDT Phone Note filed by Clinician Phone Note at 07/06/10 5236 Author: Clinician Phone Note Service: (none) Author Type: Resource Filed: 07/06/10 1114 Note Time: 07/23/02 0001 Status: Signed Delinquent Tax Collector Assistant: Clinician Phone Note (Resource) SUBJECTIVE: PATIENT COMPLAINS OF... Mild to * HOME PHONE:[phone] * moderate headache without * WORK PHONE:[phone] * neurological symptoms. MOm calling, Tianna has had a headache for six d ays. He is at college and can't come to clinic fo r appt. He is going to be seen in student service is tomorrow. Patient is currently taking Zyrtec f or allergies. Mom states he is c/o pressure behin d the eyes. He has tried some OTC products and all ergy cold medication. ALLERGIES/SENSITIVITIES... knda 07/23/02 CURRENT MEDICATIONS... Zrytec 07/23/02 PERTINENT PAST HISTORY... allergies; healthy 07/23/02 ASSESSMENT: Headache-(adult)-triage guideline DISPOSITION: HOME CARE PLAN: RECOMMENDED THE FOLLOWING... Referenced guideline Headache-(adult)-triage guideline. -Relax or sleep in a quiet, darkened room with head elevated -Use massage and heat to back of neck and shoulders to help relax muscles -Apply cool or warm compresses to head for pain relief -Take analgesic of choice as directed on package -Sip small amounts of clear liquid to avoid nausea -Use relaxation techniques for anxiety or tension Verbalizes understanding and agrees with phone care recommendation INFORMED PATIENT TO CALLBACK IF... Reasons to call back reviewed- caller verbalizes understanding of the need to call back for the following reasons: -No improvement with home management -Symptoms persist or worsen -Any other questions or concerns MISC COMMENTS... he will be seen at [facility] tomorrow. CALL BY MARÍA ELENA LI RN 07/23/2002 03:16PM ADDENDUM: Mary Grace Sumner - 10/19/2001 12:01 AM CDT Progress Notes signed by Mary Grace Sumner MD at 01/13/02 1417 Author: Mary Grace Sumner MD Service: (none) Author Type: Physician Filed: 07/08/10 0850 Note Time: 10/19/01 0001 Status: Signed Delinquent Tax Collector Assistant: Mary Grace Sumner MD (Physician) IMPRESSION: Contusion with subungual hematoma to the right third finger, stable. Improving with conservative measures. SUBJECTIVE: COMPANY NAME: [employer] DATE OF INJURY: 10/09/2001 IS CONDITION WORK RELATED? 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 In the afternoon at work he was in the process of building a shelf weighing approximately 25 pounds which slipped, falling striking his right third middle finger. He noted immediate pain and subsequent discoloration and swelling at the fingertip. He had difficulty sleeping at night with throbbing pain. He continued working and presented to urgent care on the . X-ray there did not reveal any ulnar joint abnormality. The nail was lanced with cautery to relieve pressure from the subungual hematoma. With decreased pain he was placed on Tylenol No. 3. After several doses he experienced some nausea and has not used since. He has been using ibuprofen three times daily. Has continued with work activity without significant difficulty. Pain has gradually been subsiding as well as swelling. Note that he is right-hand dominant. PAST MEDICAL HISTORY: Significant for treatment for depression. He is on Wellbutrin and Prozac. He also has a history of seasonal allergies to grass and pollens for which he takes Zyrtec that relieves symptoms well. ADR/ALLERGIES: HE HAS NO KNOWN MEDICATION ALLERGIES. No prior hospitalizations or surgeries. FAMILY HISTORY: Negative for heart disease, diabetes, arthritis. SOCIAL HISTORY: He is single, college student entering his sophomore year. Enjoys playing soccer. Is not a nonsmoker nondrinker. OBJECTIVE: VS/GEN: BP: P: 100/50. P: 60. This is a well developed, well nourished young male with average build who presents in no acute distress. There is bluish discoloration remaining beneath the nail with very minimal tenderness on firm palpation. The cuticle region with approximately five millimeters proximal, remains raised with some mild swelling. No fluctuants. No purulent drainage. Minimal erythema at the base of the nail since the four mm. No surrounding erythema red streaking. Demonstrates full flexion [id number] the DIP , normal compliance administrator strength. Sensation is grossly intact to light touch and pinwheel. ASSESSMENT: Contusion with subungual hematoma to the right third finger, stable. Improving with conservative measures. PLAN: May return to work without limitations as of today's date. Should continue ibuprofen on an as-needed basis for pain and followup here as needed should there be any signs of infection. Discussed continued protection for the finger as a new nail grows in. Disability prevention issues discussed. FOLLOW-UP DATE: UNDETERMINED MAXIMUM MEDICAL IMPROVEMENT: UNDETERMINED PERMANENT PARTIAL DISABILITY RATING: UNDETERMINED TT: CT: LENORA:[id number] C: DOCUMENT: [id number] MENTAL PAINTER Rober Bojorquez MD - 10/11/2001 12:01 AM CDT Progress Notes signed by Rober Bojorquez MD at 10/14/01 0959 Author: Rober Bojorquez MD Service: (none) Author Type: Physician Filed: 07/08/10 0838 Note Time: 10/11/01 0001 Status: Signed Delinquent Tax Collector Assistant: Rober Bojorquez MD (Physician) IMPRESSION: Contusion right long finger. SUBJECTIVE: COMPANY NAME: [employer]. DATE OF INJURY: 10/09/01 IS CONDITION WORK RELATED? Yes The patient is a 20-year-old male who was at work on 10/09 and had a shelf drop and pinch his right middle finger. It has been painful enough he is having trouble sleeping. He is on Wellbutrin, Prozac, Zyrtec. ADR/ALLERGIES: NONE. OBJECTIVE: VS/GEN: BP: 140/71. T: 98.7. P: 69. R: 16. EXTREMITIES: Right long finger shows tenderness at the distal phalanx with blood beneath the nail. X-ray is obtained and does not show a fracture on my interpretation. The nail is lanced with cautery and drainage is obtained. ASSESSMENT: Contusion right long finger. PLAN: He is given Tylenol #3 to use for the pain at night. Ibuprofen 600 t.i.d. during the day. Limitations at work with the use of his right hand. No lifting greater than 10 pounds total. Should not be using any tools, torquing, crimping or pinching. Can do keyboard work, as well as some light grasping. FOLLOW-UP DATE: Follow up in [facility] in a week. MAXIMUM MEDICAL IMPROVEMENT: UNDETERMINED PERMANENT PARTIAL DISABILITY RATING: Expected to be 0 TT: CT: [id number] C: DOCUMENT: [id number] Kyle Mora MD - 08/22/2001 12:01 AM CDT Progress Notes signed by Kyle Mora MD at 10/10/01 1649 Author: Kyle Mora MD Service: (none) Author Type: Physician Filed: 07/08/10 0728 Note Time: 08/22/01 0001 Status: Signed Delinquent Tax Collector Assistant: Kyle Mora MD (Physician) IMPRESSION: Allergic rhinitis. SUBJECTIVE: Tianna is a 20-year-old male with a long history of allergic rhinitis who just completed his first year at ??[employer]??. He is allergic predominantly to dust mites and grasses and his worse time is typically during August. Zyrtec 10 mg once a day. Has had a superb response in controlling almost all of his symptoms and he is back today in order to get a prescription refill. OBJECTIVE: VS/GEN: BP: 108/68. Ht: 70-3/4. Wt: 162-1/2 lb. Reveals a healthy-appearing 20-year-old male. HEENT: Normal. His nasal airway reveals minimal obstruction. Pharynx was clear. LUNGS: Chest was clear. The rest of the exam was negative. ASSESSMENT: Allergic rhinitis. PLAN: Tianna is doing well. He is very stable with the Zyrtec, which we provided a refill for another year. He has never needed the nasal steroids. We will have him return in 12 months. TT: CT: RAW:[id number] C: DOCUMENT: [id number] Conversion, Imr - 05/29/2001 12:01 AM CST Phone Note signed by at 05/29/012017 Author: Lupis Conversion Service: (none) Author Type: (none) Filed: 07/08/10 0529 Note Time: 05/29/01 0001 Status: Signed Delinquent Tax Collector Assistant: Lupis Cheng IMPRESSION: Headache-(adult)-triage guideline SUBJECTIVE: PATIENT COMPLAINS OF... Mild * HOME PHONE: [phone] * to moderate headache without neurological symptoms. Mom calling for child who is at College. Child reported to Mom that has intermittent headache. Taking Advil prn and has not been effective. Glands swollen at neck. Denies sore throat.. Tired. Mom says child has been trying OTC medication and not effective. Child is presently being treated for Depression. Mom says child will go to [facility] tomorrow for follow up. ; ALLERGIES/SENSITIVITIES... CURRENT MEDICATIONS... PERTINENT PAST HISTORY... ASSESSMENT: Headache-(adult)-triage guideline DISPOSITION: HOME CARE PLAN: RECOMMENDED THE FOLLOWING... Referenced guideline Headache-(adult)-triage guideline. -Relax or sleep in a quiet, darkened room with head elevated -Use massage and heat to back of neck and shoulders to help relax muscles -Apply cool or warm compresses to head for pain relief -Take analgesic of choice as directed on package -Sip small amounts of clear liquid to avoid nausea -Use relaxation techniques for anxiety or tension INFORMED PATIENT TO CALLBACK IF... Reasons to call back reviewed- caller verbalizes understanding of the need to call back for the following reasons: -No improvement with home management -Symptoms persist or worsen -Any other questions or concerns Call taken by JOHN PAUL RICE, RN [phone] 05/29/2001 08:06 PM ADDENDUM: Kyle Mora MD - 09/01/2000 12:01 AM CDT Progress Notes signed by Kyle Mora MD at 03/01/01 0840 Author: Kyle Mora MD Service: (none) Author Type: Physician Filed: 07/07/10 2342 Note Time: 09/01/00 0001 Status: Signed Delinquent Tax Collector Assistant: Kyle Mora MD (Physician) IMPRESSION: Allergic rhinitis. SUBJECTIVE: Clay is an 19-year-old male with allergic rhinitis who has been able to control nicely with Zyrtec 10 mg once a day. He has not needed any of the decongestants, nor is he interested in Nasonex. As long as he takes it regularly, daily, during the spring and summer, most of his symptoms are well controlled. He is quite sensitive to dust mites and grasses. OBJECTIVE: BP: 122/80. Ht: 70-1/4 inches. Wt: 168 pounds. Exam reveals a healthy-appearing, 19-year-old male. HEENT exam is normal. Turbinates are somewhat boggy, slightly pale with some clear discharge. Pharynx is clear. Chest is clear. The rest of the exam was negative. ASSESSMENT: Allergic rhinitis. PLAN: Tianna is doing well, and Zyrtec seems to be the trick for controlling his nasal allergies. He is planning on going to [employer] this fall as a freshman. We will have him return next year for followup. RAW:[id number] C: DOCUMENT: [id number] Tia Edmonds APRN, JESS - 08/25/2000 12:01 AM CDT Progress Notes signed by DOMINIQUE Pretty at 08/27/01 1319 Author: DOMINIQUE Pretty Service: (none) Author Type: Nurse Practitioner Filed: 07/07/10 4748 Note Time: 08/25/00 0001 Status: Signed Delinquent Tax Collector Assistant: DOMINIQUE Pretty (Nurse Practitioner) IMPRESSION: Healthy 19-year-old male. SUBJECTIVE: PRESENTING COMPLAINT: Eight[age] year exam. Tianna is in for routine care today. He will be going to [employer] this fall for college. Did well in high school, A student. No concerns. He is active. Enjoys sports. No concerns with coordination, endurance. He plays soccer 2-5 times a week. He bikes, does not wear a helmet. He is currently not dating anyone. His transition to college will be an important one for his mom, as he is the last child at home. PAST MEDICAL HISTORY: He has some seasonal allergies. He uses Zyrtec. He sees Dr. Hemal Mora in allergy. He has a history of acne. He has been treated with Accutane through the department of dermatology. Skin is really doing pretty well, now. Uses some topicals for his acne. Otherwise no medications. Diet is balanced, 1% milk. No nutritional concerns. OBJECTIVE: BP: 110/84. Ht: 71 inches. Wt: 172. Tianna is a pleasant, well-developed young man. On exam, he is normocephalic. TMs are clear. PHARYNX: Buccal mucosa is clear. CHEST: Symmetrical. Lungs clear to auscultation. CARDIOVASCULAR: Normal S1, S2, without murmur or gallop. ABDOMINAL EXAM: No tenderness, masses or organomegaly. SKIN: Clear. NEURO EXAM: Negative. SPINE: Straight. ASSESSMENT: Healthy 19-year-old male. PLAN: Discussed nutrition, safety, transitioning to college, reviewed checking for testicular cancer. Immunizations are up to date. Forms filled out for school. He will go to adult medicine for his next physical, could still be here this summer. MH:[id number] C: DOCUMENT: [id number] Tia Brink MD - 08/18/2000 12:01 AM CDT Progress Notes signed by at 05/11/02 0001 Author: Tia Brink MD Service: (none) Author Type: Physician Filed: 07/07/10 2326 Note Time: 08/18/00 0001 Status: Signed Delinquent Tax Collector Assistant: Tia Brink MD (Physician) IMPRESSION: Mild ankle sprain. SUBJECTIVE: Tianna is an 19-year-old who presents with right foot pain after hurting his foot while playing soccer last night. He complains of pain around the lateral aspect of the right foot. He is not sure exactly how he hurt it. OBJECTIVE: On physical exam he is afebrile and in no distress. There is minimal swelling around the lateral aspect of the right malleolus. He has full range of motion of the right foot and ankle. Neuro and vascular are intact. ASSESSMENT: Mild ankle sprain. PLAN: We discussed the pros and cons of doing an x-ray at this point. It does not appear that he has a fracture. I recommended that he ice and elevate the foot and ankle and that he return to sports sometime in the next six to seven days, increasing activity as tolerated. :[id number] C: DOCUMENT: [id number] Reena Harkins APRN, CNP - 05/16/2000 12:01 AM CST Progress Notes signed by Reena Harkins APRN, CNP at 10/31/00 1332 Author: VIVI Mejia Service: (none) Author Type: Nurse Practitioner Filed: 07/07/10 2143 Note Time: 05/16/00 0001 Status: Signed Delinquent Tax Collector Assistant: VIVI Mejia (Nurse Practitioner) IMPRESSION: Superficial acne post Accutane. 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 Back in 1998, he completed a course of Accutane. He is somewhat frustrated with the persistent nature of the acne, consisting primarily of small surface lesions on the back and the neck. He does not apply his topicals there regularly. He is using salicylic acid cleanser once a day and applies Vaseline Intensive Care Lotion for moisturizing. MEDICATIONS: Differin. ADVERSE DRUG REACTIONS: NONE. OBJECTIVE: On examination, patient is extremely fair-skinned, blond-haired, blue-eyed, well-appearing young male. He does have some comedomal activity along the hairline. He has a couple of small superficial papules at the taoist. Neck reveals a couple of resolving inflammatory papules that are small on the posterior neck. Chest is clear. He does have some noninflammatory closed comedomes on the central back where he does not apply topicals. ASSESSMENT: Superficial acne post Accutane. PLAN: Discussed importance of topical application in all acne-prone areas. He will continue the Differin gel 45 gm with year refills given q.day and will add Azelex 20% cream 30 gm with year refills given to be applied q.day. Patient was instructed on proper application and side effects including dryness, irritation, and allergic reaction, although he has been on the Azelex in the past without difficulty. He will follow up in three months if not seeing improvement, otherwise followup will be on an annual basis if able to manage with topicals alone. [facility]:[id number] C: DOCUMENT: [id number] Tia Alex APRN, CNP - 04/03/2000 12:01 AM CST Progress Notes signed by DOMINIQUE Pretty at 08/27/01 1458 Author: DOMINIQUE Pretty Service: (none) Author Type: Nurse Practitioner Filed: 07/07/102055 Note Time: 04/03/00 0001 Status: Signed Delinquent Tax Collector Assistant: DOMINIQUE Pretty (Nurse Practitioner) IMPRESSION: Viral illness. SUBJECTIVE: See schlog in chart. Patient seen for a viral illness. OBJECTIVE: N/A DIAGNOSTIC STUDIES: Negative strep screen. ASSESSMENT: Viral illness. PLAN: N/A :[id number] C: DOCUMENT: [id number] Kyle Mora MD - 08/30/1999 12:01 AM CDT Progress Notes signed by Kyle Mora MD at 04/28/00 1533 Author: Kyle Mora MD Service: (none) Author Type: Physician Filed: 07/07/10 1226 Note Time: 08/30/99 0001 Status: Signed Delinquent Tax Collector Assistant: Kyle Mora MD (Physician) IMPRESSION: Allergic rhinitis. SUBJECTIVE: Tianna is a 18-year-old male with allergic rhinitis who has inhalant allergies to dust mites and grass. He has been on Claritin in the past with only partial relief and is now on Mildred, but neither one of these were nearly as effective as the Zyrtec which is now only covered under a large co-pay. He still has a fair amount of congestion, watery itchy eyes, and some sneezing. OBJECTIVE: Exam reveals a 18-year-old male. BP: 102/70. Ht: 70-1/2 inches. Wt: 158 pounds. HEENT exam reveals some mild obstruction. Turbinates were boggy. PHARYNX was clear. CHEST was clear. The rest of the exam was negative. ASSESSMENT: Allergic rhinitis. PLAN: Overall, Tianna has done fairly well. We did get a prior approval for Zyrtec that he can take once a day, but this could also be supplemented with Entex LA twice a day for control of congestion. If that does not work, then Nasonex was provided as a prescription and sample. Immunotherapy is an option, but the family has not been ready as yet to make that commitment. Will have him return next year for followup. RAW:[id number] C: DOCUMENT: [id number] MENTAL PAINTER Reena Harkins APRN, CNP - 03/15/1999 12:01 AM CST Progress Notes signed by Reena Harkins APRN, CNP at 07/19/99 1322 Author: VIVI Mejia Service: (none) Author Type: Nurse Practitioner Filed: 07/07/10 1448 Note Time: 03/15/99 0001 Status: Signed Delinquent Tax Collector Assistant: VIVI Mejia (Nurse Practitioner) IMPRESSION: Acne, in remission. SUBJECTIVE: Patient is a 18-year-old here for re-evaluation of acne, post Accutane treatment from December 1998. He has been using Differin Gel q day and has been quite pleased with the overall improvement of his skin. He has not been breaking out in any inflammatory activity and has noted that the blackheads and whiteheads have lessened. He does find he is mildly dry from the Differin during the winter months but has not required lotion application. MEDICATIONS: Differin Gel. ADVERSE DRUG REACTIONS: None. OBJECTIVE: On examination patient's face is mildly erythematous. I do not appreciate any comedonal or papular activity on facial exam. He does have one open comedone located in the right external auditory canal. Neck, chest, and back are free of acneiform activity. ASSESSMENT: Acne, in remission. PLAN: We will continue Differin Gel 45 gm with year refills given to be applied q day. Patient will follow up on an annual basis or call sooner if he develops more papular activity. BAS:[id number] C: DOCUMENT: [id number] Reena Harkins APRN, CNP - 12/22/1998 12:01 AM CDT Progress Notes signed by Reena Harkins APRN, CNP at 01/12/99 1415 Author: VIVI Mejia Service: (none) Author Type: Nurse Practitioner Filed: 07/07/10 1323 Note Time: 12/22/98 0001 Status: Signed Delinquent Tax Collector Assistant: VIVI Mejia (Nurse Practitioner) IMPRESSION: Acne, on Accutane therapy. SUBJECTIVE: Patient is a 18-year-old here for re-evaluation of acne on Accutane therapy 40 mg, 3 q.o.d. alternating with 4 q.o.d. and has actually completed 6 months of treatment. He continues to have dryness of the lips, slight dryness of the nares, dry eyes as well as skin, and has been moisturizing appropriately. He denies grazyna nosebleeds, vision change including night vision, headaches, musculoskeletal aching, GI symptoms or mood changes on Accutane. He has noticed significantly less inflammatory new lesions. He is following a low fat diet and not consuming any vitamin supplements. MEDICATIONS: Accutane 40 mg, 3 p.o. q.o.d. alternating with 4 p.o. q.o.d. ADVERSE DRUG REACTIONS: None. OBJECTIVE: On examination, patient continues to have some open comedones on the glabella, dorsal nose, medial cheeks and chin region. He has some resolving inflammatory papules scattered about the face and some slight superficial excoriations. I do not appreciate any new activity. He does have some postinflammatory hyperpigmentation and scarring present along the jawline. Neck, chest, and back are clear. He does have a faint ríos hyperpigmented macule on the posterior right side of the neck which has faded from last visit. Dorsal hands and arms have mild xerosis. His overall color in the sun-exposed areas is erythematous in this blond haired, fair skinned, blue eyed male. ASSESSMENT: Acne, on Accutane therapy. PLAN: Patient will finish out his Accutane 40 mg, 3 p.o. q.o.d. alternating with 4 p.o. q.o.d. After approximately 2 weeks post- Accutane, he will start Differin gel 15 grams with year refills given to be applied q. day. Patient was instructed on proper application and side effects including dryness, irritation, erythema, peeling. Per patient request, the open comedones were cleansed with alcohol and several removed with a Schamberg extractor. He will follow up at the end of February for re- evaluation or call sooner for problems. CC: [id number] C: DOCUMENT: [id number] Reena Harkins APRN, CNP - 11/16/1998 12:01 AM CDT Progress Notes signed by Reena Harkins APRN, CNP at 07/13/99 4876 Author: VIVI Mejia Service: (none) Author Type: Nurse Practitioner Filed: 07/07/10 1247 Note Time: 11/16/98 0001 Status: Signed Delinquent Tax Collector Assistant: VIVI Mejia (Nurse Practitioner) IMPRESSION: Acne. Hyperpigmentation. SUBJECTIVE: The patient is a 18-year-old here for re-evaluation of acne on Accutane therapy completing five months of treatment. His dosage was increased to 40 mg three p.o. q. o.d. alternating with four p.o. q. o.d. last visit. He continues to have dryness of the lips and eyes, and states he has been moisturizing appropriately. He also has some slight dry skin, but has not sustained any sunburns. He states that his acne is improved although he still breaks out in some new inflammatory activity. He does admit to manipulating lesions. He denies dryness of the nares, grazyna nosebleed, vision change including night vision, headaches, musculoskeletal aching, nausea, vomiting, diarrhea, abdominal pain, or mood changes on Accutane. He is following a low-fat diet and labs to date have been normal. He takes vitamin C on a p.r.n. basis. MEDICATIONS: Accutane 40 mg three p.o. q. o.d. alternating with four p.o. q. o.d. ADVERSE DRUG REACTIONS: None. OBJECTIVE: On examination, sclerae are mildly injected. He continues to appear erythematous in sun-exposed areas. He continues to have a moderate amount of open and closed comedones in the glabella, medial cheeks, and inferior perioral region. The inflammatory papules and cysts have been resolving on the face and jaw region. He does have some postinflammatory hyperpigmentation and scarring present on the jaw line from previous activity. Anterior neck and chest are clear. Back examination reveals a few resolving inflammatory papules on the posterior neck. Back is clear. He does have moderate xerosis on the face, neck, and dorsal arms bilaterally. The blue-ríos pigment on the posterior neck region has faded from last visit although persists just very slightly. ASSESSMENT: 1. Acne on Accutane therapy. 2. Ríos postinflammatory hyperpigmentation. PLAN: We will check ALT, cholesterol, triglycerides today. Continue Accutane 40 mg three p.o. q. o.d. alternating with four p.o. q. o.d. #110 with no refills given. I feel the patient's best outcome would be if we continue for one additional month since his acne has been so difficult to control. I did review side- effects of the Accutane as well as measures for moisturizing mucous membranes and skin emphasizing increased lubrication to the eyes. Per patient request, the open comedones were cleansed with alcohol and several were removed with the Schamberg extractor. He will follow up in four weeks or call sooner for problems. We will continue to monitor the hyperpigmentation in the posterior neck with subsequent visits. CC: [id number] C: DOCUMENT: [id number] Reena Harkins APRN, CNP - 10/21/1998 12:01 AM CDT Progress Notes signed by Reena Harkins APRN, CNP at 07/12/99 1537 Author: VIVI Mejia Service: (none) Author Type: Nurse Practitioner Filed: 07/07/10 1222 Note Time: 10/21/98 0001 Status: Signed Delinquent Tax Collector Assistant: VIVI Mejia (Nurse Practitioner) IMPRESSION: Acne on Accutane therapy. Sunburn. SUBJECTIVE: Patient is a 17-year-old here for re-evaluation of acne, last seen 09-23-98. He has completed four months of Accutane and is taking 40 mg 1 q am, 2 q pm. He continues to have dryness of the lips and has been moisturizing lips and skin appropriately. He has recently had some headache type symptoms but has an upper respiratory infection and feels that the headache intensifies when he coughs. He denies any vision change with these headaches. They are relieved with Tylenol. He denies dryness of the nares, grazyna nosebleeds, dry eyes, vision changes, including night vision, musculoskeletal aching, nausea, vomiting, diarrhea, abdominal pain, bloody stools, or mood changes on Accutane. He is breaking out in occasional new papule which he does manipulate but feels numbers are significantly improved. He is following a low fat diet and labs today have been normal. Two weeks ago, he had a severe sunburn where he was seen by his primary care physician. He remains very erythematous and has some peeling of the arms from this. MEDICATIONS: Accutane 40 mg 1 q am, 2 q pm. Vitamin C prn. ADVERSE DRUG REACTIONS: None. OBJECTIVE: On examination, sclera are injected. Overall color is quite erythematous. He is a blond, blue-eyed, fair-skinned male. He has a moderate amount of closed comedones in the glabella and medial cheek region. He has some scattered open comedones in this area as well. He has approximately a dozen resolving inflammatory papules, some appearing excoriated, in the cheeks bilaterally. He does have some resolving inflammatory papules on the posterior neck region. Of note, he has a slight blue-ríos discoloration on the posterior right neck measuring approximately 2mm x 5mm with a 1mm satellite lesion just superior and lateral. Arms appear moderately xerotic with some slight peeling. ASSESSMENT: 1) Acne, on Accutane therapy. 2) Sunburn. PLAN: We will increase Accutane to 40 mg 3 po qod alternating with 4 po qod, #110 with no refills given. I did review side effects with patient as well as measures for moisturizing mucous membranes and skin, accentuating lubrication of the eyes. We also discussed the importance of sun protection and I did recommend Ombrelle or Presun Ultra SPF30 every two hours as well as minimizing his sun exposure. He will continue a low fat, low cholesterol diet. He will follow up in four weeks or call sooner for problems. BAS:[id number] C: DOCUMENT: [id number] O CT Tia Alex APRN, CNP - 10/14/1998 12:01 AM CDT Progress Notes signed by DOMINIQUE Pretty at 11/30/00 1238 Author: DOMINIQUE Pretty Service: (none) Author Type: Nurse Practitioner Filed: 07/07/10 1216 Note Time: 10/14/98 0001 Status: Signed Delinquent Tax Collector Assistant: DOMINIQUE Pretty (Nurse Practitioner) IMPRESSION: Sunburn SUBJECTIVE: CHIEF COMPLAINT: Sunburn. Patient received a sunburn. Mom is here to have it rechecked. Also had a concern about a black spot in the posterior right neck. OBJECTIVE: Basically, the sunburn appears to be healing. Had some dressing over the sunburn. Pigmented nevus over the posterior neck. ( If nevus begins to change, advised him to be seen in Derm.) Sunburn--no blistering. It is starting to heal. He will return p.r.n. ASSESSMENT: N/A PLAN: N/A CC: [id number] C: DOCUMENT: [id number] Tia Alex APRN, CNP - 10/12/1998 12:01 AM CDT Progress Notes signed by at 10/24/00 2100 Author: DOMINIQUE Pretty Service: (none) Author Type: Nurse Practitioner Filed: 07/07/10 1213 Note Time: 10/12/98 0001 Status: Signed Delinquent Tax Collector Assistant: DOMINIQUE Pretty (Nurse Practitioner) IMPRESSION: Sunburn. SUBJECTIVE: PRESENTING COMPLAINT: Sunburn. Patient was outside canoeing two days ago and was sunburned. He has also been at the [employer] soccer tournament. Mom wants to have his sunburn checked. OBJECTIVE: FINDINGS: No distress. On examination, Tianna has extensive sunburn on chest, back, and arms; blistering in all areas and erythema. ASSESSMENT: Sunburn. PLAN: He is to have Tylenol #3 one tablet q. 4-6 hours p.r.n. for pain. Wounds were dressed with Silvadene. Mom can redress them tomorrow. Prescription given for Silvadene and these to be checked in two days. Will call with problems in the meantime. Talked about need for sunscreens, etc. He is using Accutane. Again, will call if problems, otherwise return p.r.n. and in two days. CC: [id number] C: DOCUMENT: [id number] Lupis Cheng - 10/11/1998 12:01 AM CDT Phone Note signed by at 10/11/98 1015 Author: Lupis Conversion Service: (none) Author Type: (none) Filed: 07/07/10 1213 Note Time: 10/11/98 0001 Status: Signed Delinquent Tax Collector Assistant: Lupis Conversion IMPRESSION: Sunburn (child) - nurse guidelines - TREATING PROVIDER: JOHANA DUVAL SUBJECTIVE: * HOME PHONE: [phone] * PATIENT COMPLAINS OF... Mild sunburn, -Corrigan or red skin -Swelling or pain -Denies urgent or semi-urgent symptoms Mom calling Tianna got sunburned yesterday and today he has a blister on his right hand it is about the size of a quarter. Denies any emergent symptoms.; Mom stated that Tianna is suppose to play in a soccer tournament today. Explained that our guideline states that he should stay out of the sun and heat. It is suppose to be 97 degrees today. Recommended the child not play. ALLERGIES/SENSITIVITIES... NKA - seasonal allergies 10/11/98 CURRENT MEDICATIONS... Acutane 10/11/98 PERTINENT PAST HISTORY... allergies; healthy 10/11/98 ASSESSMENT: Sunburn (child) - nurse guidelines DISPOSITION: HOME CARE WEIGHT: 150 PLAN: RECOMMENDED THE FOLLOWING... Referenced guideline Sunburn (child) - nurse guidelines. -Give acetaminophen as directed within 6 hours and continue for 24 hours to reduce discomfort and swelling -Give cool baths or apply cool tap water compresses -Increase intake of cold fluids -Apply OTC .5% hydrocortisone cream to sunburned area -Avoid using soap on sunburned area -Do not break blisters - if blisters do break, cover with light non-stick bandage and antibiotic ointment -Have child wash hands frequently and thoroughly to prevent introducing bacteria that could cause infection -Cover child with cotton sheet at night to allow heat from skin to escape -Avoid exposure to sun and heat Patient information given per Sunburn nurse guidelines. INFORMED PATIENT TO CALLBACK IF... Reasons to call back reviewed- caller verbalizes understanding of the need to call back for the following reasons: Call taken by MARÍA ELENA LI RN [phone] 10/11/1998 10:00 AM ADDENDUM: <> 10/11/1998 03:46PM by KHANH LAUGHLIN RN [phone]: APPOINTMENT MADE. - Appointment made with LYNNE ALEX Oct 12 1998 11:10AM. <> 10/11/1998 03:54PM by KHANH LAUGHLIN RN [phone]: Pt had been out today after talking to the [employer] Nurse and now has numerous open areas and some yellow pus like drainage from some . States one whole top of his hand is an open blister. Appoint. made MENTAL PAINTER Reena Harkins APRN, CNP - 09/23/1998 12:01 AM CDT Progress Notes signed by Reena Harkins APRN, CNP at 07/09/99 0752 Author: VIVI Mejia Service: (none) Author Type: Nurse Practitioner Filed: 07/07/10 1154 Note Time: 09/23/98 0001 Status: Signed Delinquent Tax Collector Assistant: VIVI Mejia (Nurse Practitioner) IMPRESSION: Acne on Accutane therapy. SUBJECTIVE: The patient is a 17-year-old here for re-evaluation of acne on Accutane therapy for three months. Dosage was increased to two tablets q.o.d. alternating with three tablets at last visit. He continues to have dryness of the lips, slight dryness of the nares, dry eyes, and has been moisturizing appropriately. He complains of some soreness of the knees especially after playing soccer and exercisinb but does not require analgesics. He continues breaking out in new lesions in spite of the increased dose. He denies dry skin, vision change including night vision, headaches, nausea, vomiting, diarrhea, abdominal pain, bloody stool, or mood changes since starting Accutane. He is following a low-fat diet and labs today have been normal. He is taking vitamin C supplement. He recently sustained a mild burn on his back when out. MEDICATIONS: Accutane 40 mg two p.o. q.o.d. alternating with three p.o. q.o.d., Mildred b.i.d., and vitamin C. ADVERSE DRUG REACTIONS: NONE. OBJECTIVE: On examination, the patient is blonde-haired, blue-eyed, and has extremely fair skin. His overall color appears erythematous. He continues to have some scattered inflammatory papules about the face and cysts, some appearing mildly excoriated. Anterior neck is clear. He does have some inflammation papules in the right postauricular region. Chest and back are free of acneiform activity. He does have moderate xerosis of the lips. Sclerae and conjunctivae are mildly injected. I do not appreciate much xerosis of the dorsal arms. ASSESSMENT: Acne on Accutane therapy. PLAN: We will increase Accutane to 40 mg one p.o. q.d. and two p.o. q.p.m. #90 with no refills given. I did review side-effects with patient as well as measures for moisturizing mucous membranes and skin, sun protection while on Accutane, and continuing a low-fat diet. He will follow up in four weeks or call sooner for problems. He will get repeat labs of ALT, cholesterol, and triglycerides done prior to his next visit. BAS:[id number] C: DOCUMENT: [id number] Catherine White MD - 09/18/1998 12:01 AM CDT Progress Notes signed by Catherine White MD at 10/12/98 1337 Author: Catherine Carver MD Service: (none) Author Type: Physician Filed: 07/07/10 1151 Note Time: 09/18/98 0001 Status: Signed Delinquent Tax Collector Assistant: Catherine Carver MD (Physician) IMPRESSION: Bilateral knee pain. SUBJECTIVE: Patient is a 17-year-old male who presents with complaints of bilateral knee pain over the last several months. He reports that the pain started while playing soccer. He denies any trauma to the region. He states that the pain is located to the lateral aspect of both knees bilaterally. He denies any swelling. He also states that he has continued to be able to play soccer despite the pain. He also has not tried treating the pain with any medication and has never experienced pain of this type before. OBJECTIVE: On physical exam he is alert, in no apparent distress. On exam his knees show no swelling bilaterally. There is no tenderness to palpation bilaterally nor is there any tenderness when pressing on the patella. Both knees have a full range of motion. He has a negative Stephen sign. As well there is no tenderness with either valgus or varus strain. The patient has a normal gait. ASSESSMENT: Bilateral knee pain. PLAN: Tianna was referred to Physical Therapy for a full evaluation and treatment. He is to return to clinic as needed. [id number] C: DOCUMENT: [id number] Conversion, [facility] - 09/17/1998 12:01 AM CDT Phone Note signed by at 09/17/98 0916 Author: [facility] Conversion Service: (none) Author Type: (none) Filed: 07/07/10 1150 Note Time: 09/17/982238 Status: Signed Delinquent Tax Collector Assistant: Lupis Conversion IMPRESSION: Knee pain - TREATING PROVIDER: CATHERINE CARVER - Appointment made with CATHERINE * HOME PHONE: [phone] Talha CARVER Sep 18 1998 4:00PM SUBJECTIVE: PATIENT COMPLAINS OF... Mom calls states child plays soccer,. Has been having continued knee pain with activity , even with walking. Does stretches, has been having problems running more than a block. Is not taking any medications., Has been icing the knees. ALLERGIES/SENSITIVITIES... NKA - 09/17/98 CURRENT MEDICATIONS... Allergy med- mildred, Acutane 09/17/98 PERTINENT PAST HISTORY... allergies; healthy 09/17/98 ASSESSMENT: Knee pain DISPOSITION: SEMI-URGENT PLAN: RECOMMENDED THE FOLLOWING... Evaluation with the dr . INFORMED PATIENT TO CALLBACK IF... If sx persit or change Call taken by TIA DOHERTY RN [phone] 09/17/1998 09:08 AM ADDENDUM: MENTAL PAINTER Reena Harkins APRN, CNP - 08/24/1998 12:01 AM CDT Progress Notes signed by Reena Harkins APRN, CNP at 07/08/99 0938 Author: VIVI Mejia Service: (none) Author Type: Nurse Practitioner Filed: 07/07/10 1124 Note Time: 08/24/98 0001 Status: Signed Delinquent Tax Collector Assistant: VIVI Mejia (Nurse Practitioner) IMPRESSION: Acne, on Accutane therapy. SUBJECTIVE: Patient is a 17-year-old here for re-evaluation of acne. Last seen 07/20/98. He is on Accutane and has completed 2 months of treatment with dosage increase last month to 40 mg b.i.d. He continues to have dryness of the lips, dryness of the nares with some blood on the tissue after blowing. He also has had dryness of the eyes and has not been lubricating as directed. He also continues to have some dryness of the face, although the moisturizing of the arms and using the Triamcinolone for the previous asteatotic dermatitis has improved. He also has noticed some increased muscle stiffness after playing soccer with the higher dose of Accutane, but does not require analgesics. He denies any vision change including night vision, headaches, nausea, vomiting, diarrhea, abdominal pain, bloody stools or mood changes since starting the Accutane. He continues breaking out in inflammatory activity and is becoming somewhat frustrated with therapy. He is following a low fat diet and not consuming vitamin supplements. He has been liberally applying sunscreen, although the patient is extremely fair skinned. Present weight reported is 155 lb. MEDICATIONS: Claritin, Accutane 40 mg b.i.d., vitamin C. ADVERSE DRUG REACTIONS: None. OBJECTIVE: On examination, patient's face, forearms, hands and posterior neck appear erythematous. He is a blond haired, blue eyed, very fair skinned male. Examination of the face reveals continued closed and open comedones about the face and some inflammatory papules and cystic-type lesions concentrated in the cheeks, extending into the jaw region. He has marked postinflammatory hyperpigmentation and he has the same scarring present in the cheeks. He has a few inflammatory papules on the posterior neck. Chest and back are free of acneiform activity. The dorsal arms and hands are free of xerosis. Sclera are moderately injected bilaterally. ASSESSMENT: Acne, on Accutane therapy. PLAN: He got repeat labs done on Monday which were within normal range. We will increase Accutane to 40 mg, 2 p.o. q.o.d. alternating with 3 p.o. q.o.d., #80 with no refills given. I did review side effects with patient as well as measures for moisturizing mucous membranes and skin, especially concentrating on the eyes. Also we discussed need for strict sun protection while on Accutane. He will follow up in 4 weeks or call sooner for problems. CC: [id number] C: DOCUMENT: [id number] lakita Olmedo MD - 08/03/1998 12:01 AM CDT Progress Notes signed by Flakita Kim MD at 08/18/98 1013 Author: Flakita Kim MD Service: (none) Author Type: Physician Filed: 07/07/10 1102 Note Time: 08/03/98 0001 Status: Signed Delinquent Tax Collector Assistant: Flakita Kim MD (Physician) IMPRESSION: Lateral collateral ligament strain secondary to soccer. SUBJECTIVE: Tianna is presently a 17, almost 18-year-old boy who comes today for evaluation of left knee injury. It occurred while he was playing soccer a little while back. He has tried to play since and that was bothering him recently. He is on Accutane and Claritin. Localizes the pain to the lateral portion of the left knee. No swelling or redness in the area. He is able to walk on it fairly well. It has noticeably improved since he stopped running. It bothers him the most when he tries to kick a ball from the outside of his left foot. OBJECTIVE: He is alert, in no acute distress. Examination of both knees reveal them to be normal in appearance without signs of swelling. Examination of the left knee in detail reveals full flexion extension without discomfort. He has no signs of effusions, no ballotable effusion. No tenderness on patellar tendon. No tenderness around the patella. No tenderness on the medial joint line. There is some tenderness laterally, specifically over the lateral collateral ligament but not along the joint line otherwise. Negative Stephen. Negative Apley grind test. ASSESSMENT: Lateral collateral ligament strain secondary to soccer. PLAN: Icing and ibuprofen. Discussed two tablets three times a day for seven days. Would let pain be his guide in terms of activities. May need to take a few days off. Once his pain is noticeably resolved, he can go back to full activity. See back sooner if it is not improving. [facility]:[id number] C: DOCUMENT: [id number] Reena Harkins APRN, CNP - 07/20/1998 12:01 AM CDT Progress Notes signed by Reena Harkins APRN, CNP at 07/08/99 0822 Author: VIVI Mejia Service: (none) Author Type: Nurse Practitioner Filed: 07/07/10 1047 Note Time: 07/20/98 0001 Status: Signed Delinquent Tax Collector Assistant: VIVI Mejia (Nurse Practitioner) IMPRESSION: Acne on Accutane therapy. SUBJECTIVE: The patient is a 17-year-old, blond, blue-eyed, fair-skinned male here for re-evaluation of acne. Started Accutane therapy one month ago. He is on 40 mg one p.o. q.o.d. alternating with two p.o. q.o.d. He does complain about dryness of the lips and dry skin and has been moisturizing appropriately and using Vaseline or Vaseline cream. He has noticed some slight aching of his legs in the morning but states it is after working long days and does not require analgesics. He did flare with his acne when initiating Accutane treatments and continues breaking out in a few scattered new papules. He denies dryness of nares, nosebleeds, dry eyes, vision changes including night vision, headaches, nausea, vomiting, diarrhea, abdominal pain, bloody stools, or mood changes on Accutane. He did sustain a burn but has a history of burning readily with his fair nature. He is trying to follow a low fat, low cholesterol diet. Present weight is 150 pounds. MEDICATIONS: Accutane 40 mg one p.o. q.o.d. alternating with two p.o. q.o.d., Claritin, vitamin C. ADVERSE DRUG REACTIONS: NONE. OBJECTIVE: On examination, sclerae and conjunctivae appear injected. He does have a moderate amount of small inflammatory papules concentrated on the forehead, central cheeks, extending down into the jaw and chin regions. He has marked post inflammatory hyperpigmentation as well as some faint scarring present. He has a few scattered inflammatory papules on the posterior neck. Chest and back have a few scattered small papules. Dorsal forearms, upper arms, and hands to appear mildly xerotic. The upper arms appear slightly inflamed. ASSESSMENT: 1. Acne on Accutane therapy. 2. 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 PLAN: 1. One month labs were within normal limits. Increase Accutane 40 mg one p.o. b.i.d., #60 with no refills given. I did review the side effects with the patient as well as measures for moisturizing skin, continuing low fat, low cholesterol diet, and the need for strict sun protection while on Accutane. 2. Prescription written for triamcinolone 0.1% cream 16 ounces with one refill given to be applied b.i.d. two to three weeks p.r.n. The patient was instructed to avoid face, skin folds, and groin. We will re-evaluate on subsequent visits. He will followup in four weeks or call sooner for side effects other than xerosis. BAS:[id number] C: DOCUMENT: [id number] Reena Harkins APRN, CNP - 06/19/1998 12:01 AM CST Progress Notes signed by Reena Harkins APRN, CNP at 07/07/99 1116 Author: VIVI Mejia Service: (none) Author Type: Nurse Practitioner Filed: 07/07/10 1015 Note Time: 06/19/98 0001 Status: Signed Delinquent Tax Collector Assistant: VIVI Mejia (Nurse Practitioner) IMPRESSION: Microcystic acne. SUBJECTIVE: Patient is a 17-year-old male here for re- evaluation of acne, last seen 05-01-98. He was switched to erythromycin 500 mg bid and denies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 -Reviewed urgent symptoms -Give clear liquids until nausea subsides -Give nothing stronger than acetaminophen for pain Patient information given per Head Trauma nurse guidelines. INFORMED PATIENT TO CALLBACK IF... -Seizure activity -Vomiting >3 times or projectile -Increased headaches -Increased drowsiness -Undue irritability -Visual disturbances -Slurred speech -Weakness of arms or legs -Any other questions or concerns Call taken by BRI EWING RN [phone] 05/11/1996 07:37 PM ADDENDUM: <> 05/12/1996 05:35PM by SURESH KENNEY: Mom reports child has had no concerning symptoms. States he is fine today. Did write down callback inst and agrees to observe for at least 72 hrs. Reinforced on callback inst and will call if any occur. Electronically signed by Prosper [facility] at 01/09/2016 10:36 AM CDT Flakita Kim MD - 03/08/1996 12:01 AM CST Progress Notes signed by Flakita Kim MD at 01/14/02 0316 Author: Flakita Kim MD Service: (none) Author Type: Physician Filed: 07/06/102153 Note Time: 03/08/962238 Status: Signed Delinquent Tax Collector Assistant: Flakita Kim MD (Physician) IMPRESSION: No dictation required. SUBJECTIVE: N/A OBJECTIVE: N/A ASSESSMENT: N/A PLAN: N/A VIRAJ MENTAL PAINTER [facility] - 12/09/1995 12:01 AM CDT Phone Note signed by at 12/09/95 0854 Author: Lupis Conversion Service: (none) Author Type: (none) Filed: 07/06/102054 Note Time: 12/09/95 0001 Status: Signed Delinquent Tax Collector Assistant: Lupis Cheng IMPRESSION: Ear pain-(child)-nurse guidelines - APPOINTMENT MADE WITH PEDIATRICS Monday12/09/1995 10:50AM * HOME PHONE:[phone] * SUBJECTIVE: PATIENT COMPLAINS OF... Ear pain,; per mom: Ears feel plugged X 3 days, phlemy cough X 1 wk, with no SOB, no wheeze, no fever, no rash. Normal ADL's. Taking OTC Sudafed with good relief from stuffy nose. Has not tried increased humidity, but will start today, also to increase fluids. ; ALLERGIES/SENSITIVITIES... NKDA 12/09/95 CURRENT MEDICATIONS... OTC Sudafed 12/09/95 PERTINENT PAST HISTORY... allergies, healthy 12/09/95 ASSESSMENT: Ear pain-(child)-nurse guidelines DISPOSITION: SEMI-URGENT PLAN: RECOMMENDED THE FOLLOWING... Referenced guideline Ear pain-(child)-nurse guidelines. Schedule appointment within 24 hours (1 unit); -Give acetaminophen as directed; -Apply warm, moist towel over ear; -Elevate head; -Wipe away ear drainage as it appears; -Avoid ear drops unless prescribed by provider; -Give OTC Benadryl for sleep, if child remains uncomfortable after acetaminophen; INFORMED PATIENT... [facility] information [facility].; Verbalizes understanding and agrees with phone care recommendation INFORMED PATIENT TO CALLBACK IF... -Child is getting worse; new sx's, concerns, questions. ; -There is no improvement after 48-72 hours of antibiotics; CALL BY ADÁN HAHN RN 12/09/1995 08:51AM [phone] ADDENDUM: ADDENDUM 12/09/1995 08:58 AM by ADÁN HAHN RN: sent note to provider Flakita Kim MD - 09/12/1995 12:01 AM CDT Progress Notes signed by Flakita Kim MD at 01/29/96 1608 Author: Flakita Kim MD Service: (none) Author Type: Physician Filed: 07/06/102005 Note Time: 09/12/952238 Status: Signed Delinquent Tax Collector Assistant: Flakita Kim MD (Physician) IMPRESSION: Cough. Medial collateral ligament strain. SUBJECTIVE: Tianna Smith is an almost 15-year-old here today with a combination of cough and right knee pain. Of course the knee pain has probably been there for the past couple of months. He localizes it to the inner portion of the right knee. Wonders whether it might have been related to an injury that occurred two years ago, seen in Urgent Care at that time. X-rays were taken which were negative but he has been pretty much asymptomatic up until the past couple of months. It is very exclusive to the medial portion of that right knee. He has never had any swelling or significant injuries to the knee. The knee does not feel like it is giving out on him. He does have seasonal allergies. He takes Seldane, seems to be helping. His allergies do not seem to be too bad this year. He is mildly congested. He does not have a runny nose though. The cough he presently has was worse a couple of weeks ago. He saw Dr. Tia Alex who felt there may be a component of bronchitis there, put him on ten days of erythromycin. Cough is somewhat improved at rest but he definitely has hacking spells when he is out running during soccer. Other parents on the soccer field have questioned whether he has exercise induced asthma. Coughing presently is definitely exacerbated mostly with exercise. He will cough occasionally when quiet. Mom does not hear him coughing at night. Adverse drug reactions: None. OBJECTIVE: Head, Eyes, Ears, Nose, Throat: Reveals mild nasal congestion of the turbinates. Oropharynx: Benign. Tympanic membranes look good. Neck: No masses. On auscultation of the chest he has a normal respiratory rate. He has clear breath sounds in all lung hunt. I cannot hear any wheezes, rhonchi or crackles, even on forced expiration. Peak flow today is 360 with a predicted of 400 for his height. Examination of the knees reveal full range of motion. Normal muscle strength. Has no signs of any effusion on the right knee. Is Stephen's and posterior Drawer negative. He has a positive lateral stress maneuver on the knee with pain along the medial collateral ligament. He also has point tenderness right on the medial collateral ligament. Negative Apley grind test and his gait is normal. ASSESSMENT: 1. Cough, rule out exercise induced bronchospasm. 2. Medial collateral ligament strain secondary to soccer and kicking activity. PLAN: In terms of the cough have prescribed them a peak flow meter. Mom to take peak flow readings after he has been running around on the soccer field and coughing some. I have given them a prescription for Proventil inhaler 2 puffs to be taken after taking that first peak flow reading to see how the rest of the game goes. If it improves his peak flows and decreases cough would try that as a prophylaxis before games and practice. Will reassess his peak flows and response to the medication in two weeks. Secondly, ibuprofen, two adult tablets three times daily for seven days along with icing after practice and ball. Discussed how to ice the knee. Would like to re-evaluate that in two weeks also. [id number] MENTAL PAINTER [facility], [facility] - 09/01/1995 12:01 AM CDT Progress Notes signed by at 01/14/02315 Author: Luips Conversion Service: (none) Author Type: (none) Filed: 07/06/101999 Note Time: 09/01/952238 Status: Signed Delinquent Tax Collector Assistant: [facility] Conversion IMPRESSION: No dictation required. SUBJECTIVE: N/A OBJECTIVE: N/A ASSESSMENT: N/A PLAN: N/A VIRAJ SCHEDULED RESOURCE: LYNNE ALEX / DOMINIQUE.. Electronically signed by [facility], [facility] at 01/09/2016 8:55 AM CDT Conversion, [facility] - 08/28/1995 12:01 AM CDT Phone Note signed by at 08/29/95 0106 Author: Lupis Conversion Service: (none) Author Type: (none) Filed: 07/06/101956 Note Time: 08/28/952238 Status: Signed Delinquent Tax Collector Assistant: [facility] Conversion IMPRESSION: Nosebleeds- (child)-nurse guideline SUBJECTIVE: PATIENT COMPLAINS OF... Nosebleeds * HOME PHONE:[phone] * easily controlled with home management.; Dad states pt. has allergie and does get nose blee ds. This one has been occurring for the past 45min utes. Pt. has been shoving kleenex up his nose and pulling them out. Has not tried pinching the nost rils closed yet. ; ALLERGIES/SENSITIVITIES... nka 08/28/95 CURRENT MEDICATIONS... Seldane 08/28/95 PERTINENT PAST HISTORY... allergies, healthy 08/28/95 ASSESSMENT: Nosebleeds- (child)-nurse guideline DISPOSITION: HOME CARE PLAN: RECOMMENDED THE FOLLOWING... Nosebleeds- (child)-nurse guideline was the Guideline used. -Discourage further nose blowing; -Apply continuous pressure to nose for 10 minutes without checking; -Have child sit up with head bent forward slightly and breathe through the mouth; -Apply ice to the area below the bony portion of the nose; -Encourage child to sit quietly for 15-30 minutes. Do not allow child to blow nose or put anything in nose; -Improve room humidity with a cool mist vaporizer; -Discourage child from picking nose or blowing nose vigorously; -Use humidifier to increase humidity in home; INFORMED PATIENT... Patient information given per Nosebleed nurse guideline.; Verbalizes understanding and agrees with phone care recommendation INFORMED PATIENT TO CALLBACK IF... Caregiver to call back if:; -Bleeding does not stop after 10 minutes of direct pressure; [facility] COMMENTS... Dad states that if bleeding does not stop after the 10minutes, he will call us for referral to ER or if further episodes occur. Pt. staying with dad at this time. Forgot to get father's telephone number for ca ll back. CALL BY CARLITO BAE 08/28/1995 11:00PM [phone] ADDENDUM: Mike Harris MD - 08/04/1995 12:01 AM CDT Progress Notes signed by Mike Orta MD at 08/21/95 1628 Author: Mike Orta MD Service: (none) Author Type: Physician Filed: 07/06/10 194 Note Time: 08/04/95 0001 Status: Signed Delinquent Tax Collector Assistant: Mike Orta MD (Physician) IMPRESSION: Gastroenteritis. SUBJECTIVE: 14-year-old, who has had abdominal pain today that has been intermittent. He has vomited a few times and had more than 10 diarrheal stools, no blood. ADVERSE DRUG REACTIONS: None. MEDICATIONS: Seldane. OBJECTIVE: T: 100.9. P: 96. R: 16. EENT, unremarkable. Lungs are clear to auscultation. Heart rate and rhythm regular without murmur. Abdomen is soft with active bowel sounds. ASSESSMENT: Gastroenteritis. PLAN: Discussed symptomatic therapy. Expect improvement over the next few days. cbs Conversion, [facility] - 02/28/1995 12:01 AM CST Phone Note signed by at 02/28/95 0500 Author: [facility] Conversion Service: (none) Author Type: (none) Filed: 07/06/10 1818 Note Time: 02/28/95 0001 Status: Signed Delinquent Tax Collector Assistant: Imr Conversion IMPRESSION: Headache SUBJECTIVE: PATIENT COMPLAINS OF... Mom calling * HOME PHONE:[phone] * that 14 year old son has puonding * WORK PHONE:[phone] * headache since Monday at comes and goes,very intense at the back of his head. Cannot lay down because it hurt too much. No fever. Mom gave Tylenol. Does have sinus problems.__Thought it was the flu going around. ALLERGIES/SENSITIVITIES... nka 02/28/95 CURRENT MEDICATIONS... none 02/28/95 PERTINENT PAST HISTORY... healthy allergy and sinus problems 02/28/95 ASSESSMENT: Headache DISPOSITION: HOME CARE WEIGHT: 85 PLAN: RECOMMENDED THE FOLLOWING... Will continue_Tylenol and if still probelm in AM, Mom will call Dr Kim who is just 1 block away in clinic. Verbalizes understanding and agrees with phone care recommendation [facility] COMMENTS... Call taken around 1:10am, computer down. Mom prefers to wait and see tomorrow and call clinic if problem still there. CALL BY ARMANDO SOTO 02/28/1995 04:52AM [phone] ADDENDUM: MENTAL PAINTER documented in this encounter Plan of Treatment Not on filedocumented as of this encounter Procedures Procedure Name Priority Date/Time Associated Comments Diagnosis XR FINGER MULTIPLE Routine 10/11/2001 9:22 AM Res ults for this CDT procedure are i n the results section. STREP GROUP A ANTIGEN Routine 04/03/2000 1:27 PM Results for this TEST ORNAMENTAL PAINTER procedure are i n the results section. BETA STREP FOLLOWUP Routine 04/03/2000 1:27 PM Re sults for this ORNAMENTAL PAINTER procedure are i n the results section. TRIGLYCERIDES (> 12 Routine 11/16/1998 11:35 Resu lts for this HR. FAST) AM CDT procedure are i n the results section. ALT (SGPT) Routine 11/16/1998 11:35 Results for this AM CDT procedure are i n the results section. CHOLESTEROL (TOTAL) Routine 11/16/1998 11:35 Resu lts for this AM CDT procedure are i n the results section. TRIGLYCERIDES (> 12 Routine 10/17/1998 8:53 AM Re sults for this HR. FAST) CDT procedure are i n the results section. ALT (SGPT) Routine 10/17/1998 8:53 AM Results f or this CDT procedure are i n the results section. CHOLESTEROL (TOTAL) Routine 10/17/1998 8:53 AM Re sults for this CDT procedure are i n the results section. TRIGLYCERIDES (> 12 Routine 09/19/1998 8:13 AM Re sults for this HR. FAST) CDT procedure are i n the results section. ALT (SGPT) Routine 09/19/1998 8:13 AM Results f or this CDT procedure are i n the results section. CHOLESTEROL (TOTAL) Routine 09/19/1998 8:13 AM Re sults for this CDT procedure are i n the results section. TRIGLYCERIDES (> 12 Routine 08/22/1998 10:10 Resu lts for this HR. FAST) AM CDT procedure are i n the results section. ALT (SGPT) Routine 08/22/1998 10:10 Results for this AM CDT procedure are i n the results section. CHOLESTEROL (TOTAL) Routine 08/22/1998 10:10 Resu lts for this AM CDT procedure are i n the results section. LIVER PANEL(HEPATIC Routine 07/18/1998 8:55 AM Re sults for this FUNCTION PANEL) CDT procedure ar e in the results section. COMPLETE BLOOD Routine 07/18/1998 8:55 AM Results for this COUNT-NO DIFF CDT procedure are in the results section. TRIGLYCERIDES (> 12 Routine 07/18/1998 8:55 AM Re sults for this HR. FAST) CDT procedure are i n the results section. CHOLESTEROL (TOTAL) Routine 07/18/1998 8:55 AM Re sults for this CDT procedure are i n the results section. TRIGLYCERIDES (> 12 Routine 07/04/1998 8:28 AM Re sults for this HR. FAST) CDT procedure are i n the results section. ALT (SGPT) Routine 07/04/1998 8:28 AM Results f or this CDT procedure are i n the results section. CHOLESTEROL (TOTAL) Routine 07/04/1998 8:28 AM Re sults for this CDT procedure are i n the results section. LIVER PANEL(HEPATIC Routine 06/20/1998 8:29 AM Re sults for this FUNCTION PANEL) ORNAMENTAL PAINTER procedure ar e in the results section. COMPLETE BLOOD Routine 06/20/1998 8:29 AM Results for this COUNT-NO DIFF ORNAMENTAL PAINTER procedure are in the results section. TRIGLYCERIDES (> 12 Routine 06/20/1998 8:29 AM Re sults for this HR. FAST) ORNAMENTAL PAINTER procedure are i n the results section. CHOLESTEROL (TOTAL) Routine 06/20/1998 8:29 AM Re sults for this ORNAMENTAL PAINTER procedure are i n the results section. XR LUMBAR SPINE AP/LAT Routine 04/30/1997 3:16 PM Results for this VIEWS ORNAMENTAL PAINTER procedure are i n the results section. ANC RESULT CONVERSION Routine 09/18/1996 2:47 PM Results for this DEFAULT ORDER CDT procedure are in the results section. ANC RESULT CONVERSION Routine 12/30/1993 6:44 PM Results for this DEFAULT ORDER CDT procedure are in the results section. documented in this encounter Results XR Finger Multiple (10/11/2001 9:22 AM CDT) Anatomical Region Laterality Modality Upper Extremity, Hand Other Specimen (Source) Anatomical Location Collection Method / Collectio n Time Received Time / Laterality Volume Narrative 10/11/2001 9:22 AM CDT CLINICAL DATA: ?PAIN FINDINGS: ?? BN1 ?? NO RADIOGRAPHIC EVIDENCE OF BONE OR JOINT ABNORMALITY. TECH-ID : ? BJR TRANS-ID: Procedure Note Gray Lemons E - 05/30/2016 CLINICAL DATA: PAIN FINDINGS: BN1 NO RADIOGRAPHIC EVIDENCE OF BONE OR BIB[place] NT ABNORMALITY. TECH-ID : BJR TRANS-ID: Rober Bojorquez MD RAD GD Strep Group A Antigen Test (04/03/2000 1:27 PM ORNAMENTAL PAINTER) [facility] Signature Strep Group A Negative Negative HP CONVERSION Antigen Test Comment: Culture to follow. Specimen (Source) Anatomical Collection Method Collection Time Re ceived Time Location / / Volume Laterality 04/03/2000 1:27 PM ORNAMENTAL PAINTER Tia Brink MD LAB_1 Performing Organization Address City/State/ZIP Code Phon e Number HP CONVERSION Beta Strep Followup (04/03/2000 1:27 PM ORNAMENTAL PAINTER) P athologist Signature Strep Screen SEE TEXT HP CONVERSION Comment: Patient: TIANNA SMITH Eamon Rapid Strep Follow up Culture @ ? Collected: ??[id number] ??[id number] Source: Throat ?Processed: ??[id number] ??[id number] ? 1B Final Report ------ ?[id number] ??[id number] No beta hemolytic Strep group A isolated . @ = Rapid F/U Cult Performed at ??[address] [place], [place] ?[address] Specimen (Source) Anatomical Collection Method Collection Time Re ceived Time Location / / Volume Laterality 04/03/2000 1:27 PM ORNAMENTAL PAINTER Tia Brink MD LAB_1 Performing Organization Address [facility] Code Phon e Number HP CONVERSION ALT (SGPT) (11/16/1998 11:35 AM CDT) [facility] gist Method Time Signature Alanine 36 0 - 65 HP CONVERSION Aminotransferase U/L Specimen (Source) Anatomical Collection Method Collection Time Re ceived Time Location / / Volume Laterality 11/16/1998 11:35 AM CDT Reena Harkins APRN, CNP LAB_1 Performing Organization Address City/[facility] Code Phon e Number HP CONVERSION (ABNORMAL) Cholesterol (Total) (11/16/1998 11:35 AM CDT) P athologist Signature Cholesterol 118 (LL) 125 - 199 HP CONVERSION mg/dL Specimen (Source) Anatomical Collection Method Collection Time Re ceived Time Location / / Volume Laterality 11/16/1998 11:35 AM CDT Reena Harkins APRN, CNP LAB_1 Performing Organization Address [facility] Code Phon e Number HP CONVERSION Triglycerides (> 12 Hr. Fast) (11/16/1998 11:35 AM CDT) P athologist Signature Triglycerides 100 0 - 250 HP CONVERSION mg/dL Specimen (Source) Anatomical Collection Method Collection Time Re ceived Time Location / / Volume Laterality 11/16/1998 11:35 AM CDT Reena Harkins APRN, JESS LAB_1 Performing Organization Address [facility] Code Phon e Number HP CONVERSION ALT (SGPT) (10/17/1998 8:53 AM CDT) [facility] Method Time Signature Alanine 35 0 - 65 HP CONVERSION Aminotransferase U/L Specimen (Source) Anatomical Collection Method Collection Time Re ceived Time Location / / Volume Laterality 10/17/1998 8:53 AM CDT Reena Harkins JESS TALLEY LAB_1 Performing Organization Address [facility] Phon e Number HP CONVERSION Cholesterol (Total) (10/17/1998 8:53 AM CDT) athologist Signature Cholesterol 135 125 - 199 HP CONVERSION mg/dL Specimen (Source) Anatomical Collection Method Collection Time Re ceived Time Location / / Volume Laterality 10/17/1998 8:53 AM CDT Reena Harkins JESS TALLEY LAB_1 Performing Organization Address [facility] Phon e Number HP CONVERSION Triglycerides (> 12 Hr. Fast) (10/17/1998 8:53 AM CDT) athologist Signature Triglycerides 114 0 - 250 HP CONVERSION mg/dL Specimen (Source) Anatomical Collection Method Collection Time Re ceived Time Location / / Volume Laterality 10/17/1998 8:53 AM CDT Reena Harkins JESS TALLEY LAB_1 Performing Organization Address [facility] Code Phon e Number HP CONVERSION ALT (SGPT) (09/19/1998 8:13 AM CDT) [facility] Method Time Signature Alanine 34 0 - 65 HP CONVERSION Aminotransferase U/L Specimen (Source) Anatomical Collection Method Collection Time Re ceived Time Location / / Volume Laterality 09/19/1998 8:13 AM CDT Reena Harkins GERRI, JESS LAB_1 Performing Organization Address [facility] Code Phon e Number HP CONVERSION (ABNORMAL) Cholesterol (Total) (09/19/1998 8:13 AM CDT) athologist Signature Cholesterol 120 (LL) 125 - 199 HP CONVERSION mg/dL Specimen (Source) Anatomical Collection Method Collection Time Re ceived Time Location / / Volume Laterality 09/19/1998 8:13 AM CDT Reena Harkins GERRI, AUDIT MGR LAB_1 Performing Organization Address City/[facility]/ZIP Code Phon e Number HP CONVERSION Triglycerides (> 12 Hr. Fast) (09/19/1998 8:13 AM CDT) P athologist Signature Triglycerides 87 0 - 250 HP CONVERSION mg/dL Specimen (Source) Anatomical Collection Method Collection Time Re ceived Time Location / / Volume Laterality 09/19/1998 8:13 AM CDT Reena Harkins GERRI, AUDIT MGR LAB_1 Performing Organization Address City/[facility] Code Phon e Number HP CONVERSION ALT (SGPT) (08/22/1998 10:10 AM CDT) [facility] Method Time Signature Alanine 36 0 - 65 HP CONVERSION Aminotransferase U/L Specimen (Source) Anatomical Collection Method Collection Time Re ceived Time Location / / Volume Laterality 08/22/1998 10:10 AM CDT Richard Paz MD LAB_1 Performing Organization Address City/[facility]/ZIP Code Phon e Number HP CONVERSION (ABNORMAL) Cholesterol (Total) (08/22/1998 10:10 AM CDT) athologist Signature Cholesterol 118 (LL) 125 - 199 HP CONVERSION mg/dL Specimen (Source) Anatomical Collection Method Collection Time Re ceived Time Location / / Volume Laterality 08/22/1998 10:10 AM CDT Richard Paz MD LAB_1 Performing Organization Address City/[facility]/ZIP Code Phon e Number HP CONVERSION Triglycerides (> 12 Hr. Fast) (08/22/1998 10:10 AM CDT) athologist Signature Triglycerides 67 0 - 250 HP CONVERSION mg/dL Specimen (Source) Anatomical Collection Method Collection Time Re ceived Time Location / / Volume Laterality 08/22/1998 10:10 AM CDT Richard Paz MD LAB_1 Performing Organization Address City/[facility]/ZIP Code Phon e Number HP CONVERSION Liver Panel(Hepatic Function Panel) (07/18/1998 8:55 AM CDT) [facility] gist Method Time Signature Alk Phos 185 30 - 250 HP CONVERSION U/L Bilirubin Total 0.5 0.2 - 1.2 HP CONVERSION mg/dL Bilirubin, Direct 0.09 0.00 - HP CONVERSIO N 0.40 mg/dL Albumin 4.1 3.0 - 5.0 HP CONVERSION g/dL Aspartate 17 0 - 45 HP CONVERSION Aminotransferase U/L Alanine 34 0 - 65 HP CONVERSION Aminotransferase U/L Specimen (Source) Anatomical Collection Method Collection Time Re ceived Time Location / / Volume Laterality 07/18/1998 8:55 AM CDT Reena Spencer Torin TALLEY, JESS LAB_1 Performing Organization Address City/[facility] Phon e Number HP CONVERSION (ABNORMAL) Cholesterol (Total) (07/18/1998 8:55 AM CDT) athologist Signature Cholesterol 116 (LL) 125 - 199 HP CONVERSION mg/dL Specimen (Source) Anatomical Collection Method Collection Time Re ceived Time Location / / Volume Laterality 07/18/1998 8:55 AM CDT Reena A Torin TALLEY CNP LAB_1 Performing Organization Address [facility] Phon e Number HP CONVERSION Triglycerides (> 12 Hr. Fast) (07/18/1998 8:55 AM CDT) athologist Signature Triglycerides 91 0 - 250 HP CONVERSION mg/dL Specimen (Source) Anatomical Collection Method Collection Time Re ceived Time Location / / Volume Laterality 07/18/1998 8:55 AM CDT Reena Spencer Torin TALLEY, JESS LAB_1 Performing Organization Address [facility] Phon e Number HP CONVERSION Complete Blood Count-No Diff (07/18/1998 8:55 AM CDT) athologist Signature White Blood Cell 4.9 3.8 - 11.0 HP CONVERSIO N Count K/cmm Red Blood Cell 5.14 4.50 - HP CONVERSION Count 5.30 m/cmm Hemoglobin 15.9 13.0 - HP CONVERSION 16.0 gm/dL Hematocrit 45.9 37.0 - HP CONVERSION 49.0 % Mean Corpuscular 89.2 78.0 - HP CONVERSION Volume 100.0 fl Mean Corpuscular 30.9 24.0 - HP CONVERSION Hemoglobin 34.0 pg Mean Corpuscular 34.6 32.0 - HP CONVERSION Hemoglobin Conc 36.5 gm/dL [place] RDW 11.7 11.0 - HP CONVERSION 15.0 % Platelet Count 228 140 - 450 HP CONVERSION k/cmm Specimen (Source) Anatomical Collection Method Collection Time Re ceived Time Location / / Volume Laterality 07/18/1998 8:55 AM CDT Reena Harkins APRN, AUDIT MGR LAB_1 Performing Organization Address [facility] Code Phon e Number HP CONVERSION ALT (SGPT) (07/04/1998 8:28 AM CDT) [facility] Method Time Signature Alanine 35 0 - 65 HP CONVERSION Aminotransferase U/L Specimen (Source) Anatomical Collection Method Collection Time Re ceived Time Location / / Volume Laterality 07/04/1998 8:28 AM CDT Richard Paz MD LAB_1 Performing Organization Address [place]/[facility] Code Phon e Number HP CONVERSION (ABNORMAL) Cholesterol (Total) (07/04/1998 8:28 AM CDT) athologist Signature Cholesterol 105 (LL) 125 - 199 HP CONVERSION mg/dL Specimen (Source) Anatomical Collection Method Collection Time Re ceived Time Location / / Volume Laterality 07/04/1998 8:28 AM CDT Richard Paz MD LAB_1 Performing Organization Address [place]/[facility] Code Phon e Number HP CONVERSION Triglycerides (> 12 Hr. Fast) (07/04/1998 8:28 AM CDT) athologist Signature Triglycerides 68 0 - 250 HP CONVERSION mg/dL Specimen (Source) Anatomical Collection Method Collection Time Re ceived Time Location / / Volume Laterality 07/04/1998 8:28 AM CDT Richard Paz MD LAB_1 Performing Organization Address [place]/[facility] Phon e Number HP CONVERSION Liver Panel(Hepatic Function Panel) (06/20/1998 8:29 AM ORNAMENTAL PAINTER) [facility] Method Time Signature Alk Phos 188 30 - 250 HP CONVERSION U/L Bilirubin Total 0.7 0.2 - 1.2 HP CONVERSION mg/dL Bilirubin, Direct 0.16 0.00 - HP CONVERSIO N 0.40 mg/dL Albumin 4.0 3.0 - 5.0 HP CONVERSION g/dL Aspartate 14 0 - 45 HP CONVERSION Aminotransferase U/L Alanine 33 0 - 65 HP CONVERSION Aminotransferase U/L Specimen (Source) Anatomical Collection Method Collection Time Re ceived Time Location / / Volume Laterality 06/20/1998 8:29 AM ORNAMENTAL PAINTER Richard Paz MD LAB_1 Performing Organization Address City/State/ZIP Code Phon e Number HP CONVERSION (ABNORMAL) Cholesterol (Total) (06/20/1998 8:29 AM ORNAMENTAL PAINTER) athologist Signature Cholesterol 104 (LL) 125 - 199 HP CONVERSION mg/dL Specimen (Source) Anatomical Collection Method Collection Time Re ceived Time Location / / Volume Laterality 06/20/1998 8:29 AM ORNAMENTAL PAINTER Richard Paz MD LAB_1 Performing Organization Address City/State/ZIP Code Phon e Number HP CONVERSION Triglycerides (> 12 Hr. Fast) (06/20/1998 8:29 AM ORNAMENTAL PAINTER) athologist Signature Triglycerides 68 0 - 250 HP CONVERSION mg/dL Specimen (Source) Anatomical Collection Method Collection Time Re ceived Time Location / / Volume Laterality 06/20/1998 8:29 AM ORNAMENTAL PAINTER Richard Paz MD LAB_1 Performing Organization Address City/State/ZIP Code Phon e Number HP CONVERSION Complete Blood Count-No Diff (06/20/1998 8:29 AM ORNAMENTAL PAINTER) athologist Signature White Blood Cell 4.6 3.8 - 11.0 HP CONVERSIO N Count K/cmm Red Blood Cell 5.11 4.50 - HP CONVERSION Count 5.30 m/cmm Hemoglobin 15.8 13.0 - HP CONVERSION 16.0 gm/dL Hematocrit 45.6 37.0 - HP CONVERSION 49.0 % Mean Corpuscular 89.0 78.0 - HP CONVERSION Volume 100.0 fl Mean Corpuscular 30.9 24.0 - HP CONVERSION Hemoglobin 34.0 pg Mean Corpuscular 34.6 32.0 - HP CONVERSION Hemoglobin Conc 36.5 gm/dL [place] RDW 12.3 11.0 - HP CONVERSION 15.0 % Platelet Count 220 140 - 450 HP CONVERSION k/cmm Specimen (Source) Anatomical Collection Method Collection Time Re ceived Time Location / / Volume Laterality 06/20/1998 8:29 AM ORNAMENTAL PAINTER Richard Paz MD LAB_1 Performing Organization Address City/State/ZIP Code Phon e Number HP CONVERSION XR Lumbar Spine AP/Lat Views (04/30/1997 3:16 PM ORNAMENTAL PAINTER) Anatomical Region Laterality Modality Spine, L-Spine Other Specimen (Source) Anatomical Location Collection Method / Collectio n Time Received Time / Laterality Volume Narrative 04/30/1997 3:16 PM ORNAMENTAL PAINTER CLINICAL DATA: ?LBP__R/O SPONDYLOLETIASIS ?SENT READ AND CALL LATE RUN FINDINGS: ?? LS2: ??LUMBAR SPINE ?? VERTEBRAE, INTERVERTEBRAL DISC SPACE S AND SACROILIAC JOINTS ?? APPEAR NORMAL. TECH-ID : ? 34 TRANS-ID: Procedure Note Johanna Delgado - 05/30/2016 CLINICAL DATA: LBP__R/O SPONDYLOLETIASIS SENT READ AND CALL LATE RUN FINDINGS: LS2: LUMBAR SPINE VERTEBRAE, INTERVERTEBRAL DISC SPACES A ND SACROILIAC JOINTS APPEAR NORMAL. TECH-ID : 34 TRANS-ID: Flakita Kim MD RAD GD Anc Result Conversion Default Order (09/18/1996 2:47 PM CDT) Anatomical Region Laterality Modality Other Specimen (Source) Anatomical Location Collection Method / Collectio n Time Received Time / Laterality Volume Impressions 09/18/1996 2:47 PM CDT : ?? NORMAL CHEST. FINDINGS: ?? CH1 ?? THE CARDIOVASCULAR STRUCTURES APPEAR NORMAL. ?? NO EVIDENCE OF ACTIVE PULMONARY DISE ASE. TECH-ID : ? 34 TRANS-ID: SIGNOFF PROVIDER: [id number] ??- DEPARTMENT S IGNATURE Narrative 09/18/1996 2:47 PM CDT CLINICAL DATA: ?SOB Procedure Note Aurelia Chandler MD - 05/30/2016Format ting of this note might be different from the original. CLINICAL DATA: SOB IMPRESSION : NORMAL CHEST. FINDINGS: CH1 THE CARDIOVASCULAR STRUCTURES APPEAR NO RMAL. NO EVIDENCE OF ACTIVE PULMONARY DISEASE . TECH-ID : 34 TRANS-ID: SIGNOFF PROVIDER: [id number] - DEPARTMENT SIG NATURE Flakita Kim MD RAD GD Anc Result Conversion Default Order (12/30/1993 6:44 PM CDT) Anatomical Region Laterality Modality Other Specimen (Source) Anatomical Location Collection Method / Collectio n Time Received Time / Laterality Volume Impressions 12/30/1993 6:44 PM CDT : ?STUDY IS NEGATIVE. FINDINGS: ?BN3 ?NO EVIDENCE OF FRACTURE OR DISLOCA TION. ??DENSITY OF THE BONY ?STRUCTURES IS NORMAL. ??SOFT TISSU ES ARE UNREMARKABLE. TECH-ID : ? ES TRANS-ID: Narrative 12/30/1993 6:44 PM CDT CLINICAL DATA: ?INJURY Procedure Note Sandip Delgado MD - 05/30/2016Form atting of this note might be different from the original. CLINICAL DATA: INJURY IMPRESSION : STUDY IS NEGATIVE. FINDINGS: BN3 NO EVIDENCE OF FRACTURE OR DISLOCATION. DENSITY OF THE BONY STRUCTURES IS NORMAL. SOFT TISSUES ARE UNREMARKABLE. TECH-ID : ES TRANS-ID: Rober Bojorquez MD RAD GD documented in this encounter Visit Diagnoses Not on filedocumented in this encounter Care Teams Graphic Manager Relationship Specialty Start Date End Date Flakita Kim MD PCP - General 06/18/[address] [place] [address] [facility] [place] [address] documented as of this encounter
[2021-12-06 15:45] VITALS: PULSE 67; O2SAT 96
== END 2021-12-06 15:57 | disposition home or self-care (01) ==
PROVIDERS: Emergency Provider Emergency Medicine Emergency Medical Services; PCP Family Medicine
DX: U07.1 COVID-19 (principal)
CPT/HCPCS: 71045; 99283; 99284; J1100

== ENCOUNTER 2024-06-07 09:20 | Outpatient (CLI) | payer MEDICAID, SELFPAY | END 2024-06-07 09:21 | disposition home or self-care (01) | PROVIDERS: PCP Family Medicine; Visit Provider Family Medicine | DX: R53.83 Other fatigue (principal); R22.33 Localized swelling, mass and lump, upper limb, bilateral; K90.0 Celiac disease; L98.9 Disorder of the skin and subcutaneous tissue, unspecified; Z13.6 Encounter for screening for cardiovascular disorders; Z78.9 Other specified health status | CPT/HCPCS: 80053; 80061; 82306; 82607; 82728; 84443 ==

== ENCOUNTER 2024-07-29 07:55 | Outpatient (CLI) | payer MEDICAID, SELFPAY | END 2024-07-29 07:56 | disposition home or self-care (01) | PROVIDERS: PCP Family Medicine; Visit Provider Family Medicine | DX: R94.31 Abnormal electrocardiogram [ECG] [EKG] (principal); R00.1 Bradycardia, unspecified | CPT/HCPCS: 93306 ==

== ENCOUNTER 2024-10-08 08:05 | Outpatient (CLI) | payer MEDICAID, SELFPAY | END 2024-10-08 08:06 | disposition home or self-care (01) | LOC: NFLDREF 10-09 16:27 | PROVIDERS: PCP Family Medicine; Referring Provider Family Medicine; Visit Provider Family Medicine | DX: E53.8 Deficiency of other specified B group vitamins (principal); Z78.9 Other specified health status | CPT/HCPCS: 82607 ==